=== PATIENT | female | born 1950 | race Caucasian/White ===

== ENCOUNTER 2018-02-06 10:00 | Outpatient (CLI) | payer MEDICARE, OTHER ==
[~2018-02-06 10:00] MED LIST: CALCITRIOL 0.25 MCG CAP PO PRN; DIALYSIS ACETAMINOPHEN 325 MG PO PRN; HEPARIN (PORCINE) 1000 UNIT/ML (DIALYSIS) IVP PRN; LIDOCAINE/SOD BICARB 8.4% SYR SC PRN; LOPERAMIDE HCL 2 MG CAP PO PRN; PROMETHAZINE HCL 25 MG TAB PO PRN; diphenhydr DIALYSIS 50 MG/ML IVP PRN
== END 2018-02-06 18:30 | disposition home or self-care (01) ==
LOC: DIAL 10:00 → EDSTATUS 10:03 → DIAL 18:30
PROVIDERS: ATTEND Internal Medicine Nephrology
DX: N18.6 End stage renal disease (principal); D63.1 Anemia in chronic kidney disease; N25.0 Renal osteodystrophy; Z99.2 Dependence on renal dialysis; I50.9 Heart failure, unspecified; N25.81 Secondary hyperparathyroidism of renal origin; Z91.81 History of falling; G43.909 Migraine, unspecified, not intractable, without status migrainosus; I12.0 Hypertensive chronic kidney disease with stage 5 chronic kidney disease or end stage renal disease; E56.9 Vitamin deficiency, unspecified; D50.9 Iron deficiency anemia, unspecified
CPT/HCPCS: 90999

== ENCOUNTER → 2018-07-31 | Outpatient (CLI) | payer MEDICARE, OTHER | LOC: DIAL 15:00 | PROVIDERS: ATTEND Internal Medicine Nephrology | DX: I12.0 Hypertensive chronic kidney disease with stage 5 chronic kidney disease or end stage renal disease (principal); N18.6 End stage renal disease; Z99.2 Dependence on renal dialysis; D63.1 Anemia in chronic kidney disease; N25.81 Secondary hyperparathyroidism of renal origin; E11.22 Type 2 diabetes mellitus with diabetic chronic kidney disease; I50.9 Heart failure, unspecified; E03.9 Hypothyroidism, unspecified; I13.11 Hypertensive heart and chronic kidney disease without heart failure, with stage 5 chronic kidney disease, or end stage renal disease; Z87.891 Personal history of nicotine dependence | CPT/HCPCS: 90999; A9270 ==

== ENCOUNTER 2018-11-27 12:12 | Outpatient (RCR) | payer MEDICARE, OTHER ==
[~2018-11-27 12:12] MED LIST changes: -CALCITRIOL 0.25 MCG CAP PO PRN; +DARBEPOETIN ESRD 100 MCG/0.5ML 100 MCG, DARBEPOETIN ESRD 25 MCG/ML 50 MCG IVP PRN; +DARBEPOETIN ESRD 100 MCG/0.5ML SYR IVP PRN; +DARBEPOETIN ESRD 25 MCG/ML IVP PRN
[2018-11-27] MEDS: HEPARIN (PORCINE) 1000 UNIT/ML (DIALYSIS) IVP PRN ×2 (13:48)
[2018-11-27] MEDS: SODIUM FERRIC GLUC 62.5 MG/5ML IVP PRN (15:46)
[2018-11-27] MEDS: CALCITRIOL 0.5 MCG CAPSULE PO PRN (15:55)
[2018-11-29] MEDS: HEPARIN (PORCINE) 1000 UNIT/ML (DIALYSIS) IVP PRN ×2 (14:01)
[2018-11-29] MEDS: CALCITRIOL 0.5 MCG CAPSULE PO PRN (15:07)
[2018-11-29] MEDS: SODIUM FERRIC GLUC 62.5 MG/5ML IVP PRN (15:07)
[2018-12-01] MEDS: HEPARIN (PORCINE) 1000 UNIT/ML (DIALYSIS) IVP PRN ×2 (13:31)
[2018-12-04] MEDS: HEPARIN (PORCINE) 1000 UNIT/ML (DIALYSIS) IVP PRN ×2 (15:29→15:30)
[2018-12-04] MEDS: CALCITRIOL 0.5 MCG CAPSULE PO PRN (19:20)
[2018-12-05] MEDS ORDERED: ATOR40TA24 PO (15:14)
[2018-12-05] MEDS ORDERED: AMLO-125 PO (15:14)
[2018-12-05] MEDS ORDERED: DULO60CA7 PO (15:14)
[2018-12-05] MEDS ORDERED: TRAZ150T8 PO (15:14)
[2018-12-05] MEDS ORDERED: TOPI-23 PO (15:14)
[2018-12-05] MEDS ORDERED: LOSA50TA80 PO (15:14)
[2018-12-05] MEDS ORDERED: LEVO88TA43 PO (15:14)
[2018-12-05] MEDS ORDERED: ASPI-1471 PO (15:46)
[2018-12-05] MEDS ORDERED: VIT PO (15:46)
[2018-12-05] MEDS ORDERED: RANI-54 PO (15:46)
[2018-12-05] MEDS ORDERED: LANT750T3 PO (15:46)
[2018-12-05] MEDS ORDERED: CIN30PT PO (15:46)
[2018-12-06] MEDS: HEPARIN (PORCINE) 1000 UNIT/ML (DIALYSIS) IVP PRN ×2 (12:51)
[2018-12-06] MEDS: SODIUM FERRIC GLUC 62.5 MG/5ML IVP PRN (13:19)
[2018-12-06 14:31] LABS: PLATELET COUNT, AUTOMATED 344 K/uL (150-450)
[2018-12-06] MEDS: CALCITRIOL 0.5 MCG CAPSULE PO PRN (16:42)
[2018-12-08] MEDS: HEPARIN (PORCINE) 1000 UNIT/ML (DIALYSIS) IVP PRN ×2 (13:36)
[2018-12-08] MEDS: DARBEPOETIN ESRD 25 MCG/ML IVP PRN (13:58)
[2018-12-08] MEDS: CALCITRIOL 0.5 MCG CAPSULE PO PRN (13:58)
[2018-12-08] MEDS ORDERED: CIN30PT PO ×2 (14:32→15:51)
[2018-12-08] MEDS ORDERED: CHOL500025 PO (15:51)
[2018-12-08] MEDS ORDERED: LANT750T3 PO ×2 (15:51)
[2018-12-08] MEDS ORDERED: OMEG1CAP88 PO (15:51)
[2018-12-11] MEDS: HEPARIN (PORCINE) 1000 UNIT/ML (DIALYSIS) IVP PRN ×2 (13:37)
[2018-12-11] MEDS: CALCITRIOL 0.5 MCG CAPSULE PO PRN (13:49)
[2018-12-13] MEDS: HEPARIN (PORCINE) 1000 UNIT/ML (DIALYSIS) IVP PRN ×2 (11:42)
[2018-12-13] MEDS ORDERED: LANT750T3 PO (13:22)
[2018-12-13] MEDS: CALCITRIOL 0.5 MCG CAPSULE PO PRN (14:14)
[2018-12-13] MEDS: SODIUM FERRIC GLUC 62.5 MG/5ML IVP PRN (14:14)
[2018-12-15] MEDS: HEPARIN (PORCINE) 1000 UNIT/ML (DIALYSIS) IVP PRN ×2 (13:40)
[2018-12-15] MEDS: CALCITRIOL 0.5 MCG CAPSULE PO PRN (14:30)
[2018-12-15] MEDS: DARBEPOETIN ESRD 25 MCG/ML IVP PRN (14:30)
[2018-12-18] MEDS: HEPARIN (PORCINE) 1000 UNIT/ML (DIALYSIS) IVP PRN ×2 (08:44→08:45)
[2018-12-18] MEDS: CALCITRIOL 0.5 MCG CAPSULE PO PRN (09:54)
[2018-12-19] MEDS ORDERED: FLUT1AER INH (16:25)
[2018-12-19] MEDS ORDERED: PANT40TA65 PO (16:25)
[2018-12-19] MEDS ORDERED: ALBU8.5H IH (16:25)
[2018-12-20] MEDS: HEPARIN (PORCINE) 1000 UNIT/ML (DIALYSIS) IVP PRN ×2 (13:31)
[2018-12-20] MEDS: SODIUM FERRIC GLUC 62.5 MG/5ML IVP PRN (14:51)
[2018-12-20] MEDS: CALCITRIOL 0.5 MCG CAPSULE PO PRN (14:51)
[2018-12-22] MEDS: HEPARIN (PORCINE) 1000 UNIT/ML (DIALYSIS) IVP PRN ×2 (13:56)
[2018-12-22] MEDS: CALCITRIOL 0.5 MCG CAPSULE PO PRN (14:02)
[2018-12-22] MEDS ORDERED: DARBEPOETIN ESRD 100 MCG/0.5ML SYR IVP PRN (15:10)
[2019-01-03] MEDS: HEPARIN (PORCINE) 1000 UNIT/ML (DIALYSIS) IVP PRN ×2 (13:36)
[2019-01-03] MEDS: SODIUM FERRIC GLUC 62.5 MG/5ML IVP PRN (14:02)
[2019-01-03] MEDS: CALCITRIOL 0.5 MCG CAPSULE PO PRN (14:02)
[2019-01-05] MEDS ORDERED: DARBEPOETIN ESRD 25 MCG/ML IVP PRN
[2019-01-05] MEDS: HEPARIN (PORCINE) 1000 UNIT/ML (DIALYSIS) IVP PRN ×2 (13:44)
[2019-01-05] MEDS: DARBEPOETIN ESRD 25 MCG/ML IVP PRN (14:10)
[2019-01-05] MEDS: CALCITRIOL 0.5 MCG CAPSULE PO PRN (14:11)
[2019-01-08] MEDS: HEPARIN (PORCINE) 1000 UNIT/ML (DIALYSIS) IVP PRN ×2 (13:36→13:37)
[2019-01-08] MEDS: CALCITRIOL 0.5 MCG CAPSULE PO PRN (14:01)
[2019-01-08] MEDS ORDERED: RANI-54 PO (17:29)
[2019-01-08] MEDS ORDERED: FLUT1AER INH (17:38)
[2019-01-08] MEDS ORDERED: DOCU-416 PO (17:38)
[2019-01-10] MEDS: HEPARIN (PORCINE) 1000 UNIT/ML (DIALYSIS) IVP PRN ×2 (13:26)
[2019-01-10] MEDS: SODIUM FERRIC GLUC 62.5 MG/5ML IVP PRN (15:37)
[2019-01-10] MEDS: CALCITRIOL 0.5 MCG CAPSULE PO PRN (16:18)
[2019-01-12] MEDS: HEPARIN (PORCINE) 1000 UNIT/ML (DIALYSIS) IVP PRN ×2 (13:53)
[2019-01-12] MEDS: CALCITRIOL 0.5 MCG CAPSULE PO PRN (14:13)
[2019-01-12] MEDS: DARBEPOETIN ESRD 25 MCG/ML IVP PRN (14:13)
[2019-01-15] MEDS: HEPARIN (PORCINE) 1000 UNIT/ML (DIALYSIS) IVP PRN ×2 (13:55)
[2019-01-15] MEDS: CALCITRIOL 0.5 MCG CAPSULE PO PRN (14:37)
[2019-01-17] MEDS: HEPARIN (PORCINE) 1000 UNIT/ML (DIALYSIS) IVP PRN ×2 (13:59)
[2019-01-17] MEDS: SODIUM FERRIC GLUC 62.5 MG/5ML IVP PRN (14:07)
[2019-01-17] MEDS: CALCITRIOL 0.5 MCG CAPSULE PO PRN (14:07)
[2019-01-17 14:29] LABS: PLATELET COUNT, AUTOMATED 240 K/uL (150-450)
[2019-01-19] MEDS: HEPARIN (PORCINE) 1000 UNIT/ML (DIALYSIS) IVP PRN ×2 (13:40→13:41)
[2019-01-19] MEDS: CALCITRIOL 0.5 MCG CAPSULE PO PRN (14:56)
[2019-01-19] MEDS ORDERED: DARBEPOETIN ESRD 100 MCG/0.5ML SYR IVP PRN (16:05)
[2019-01-22] MEDS: HEPARIN (PORCINE) 1000 UNIT/ML (DIALYSIS) IVP PRN ×2 (14:00→14:01)
[2019-01-22] MEDS: CALCITRIOL 0.5 MCG CAPSULE PO PRN (18:15)
[2019-01-24] MEDS ORDERED: LOSA50TA80 PO (09:09)
[2019-01-24] MEDS: HEPARIN (PORCINE) 1000 UNIT/ML (DIALYSIS) IVP PRN ×2 (13:52→13:53)
[2019-01-24] MEDS: SODIUM FERRIC GLUC 62.5 MG/5ML IVP PRN (15:45)
[2019-01-26] MEDS: HEPARIN (PORCINE) 1000 UNIT/ML (DIALYSIS) IVP PRN ×2 (13:49)
[2019-01-26] MEDS: DARBEPOETIN ESRD 100 MCG/0.5ML SYR IVP PRN (15:53)
[2019-01-26] MEDS ORDERED: SERT25TA87 PO (17:40)
[2019-01-26] MEDS: CALCITRIOL 0.5 MCG CAPSULE PO PRN (18:06)
[2019-01-29] MEDS: HEPARIN (PORCINE) 1000 UNIT/ML (DIALYSIS) IVP PRN ×2 (13:53)
[2019-01-29] MEDS: CALCITRIOL 0.5 MCG CAPSULE PO PRN (18:04)
[2019-01-31] MEDS: HEPARIN (PORCINE) 1000 UNIT/ML (DIALYSIS) IVP PRN ×2 (13:45)
[2019-01-31] MEDS: SODIUM FERRIC GLUC 62.5 MG/5ML IVP PRN (14:07)
[2019-01-31] MEDS: CALCITRIOL 0.5 MCG CAPSULE PO PRN (14:07)
[2019-02-02] MEDS: HEPARIN (PORCINE) 1000 UNIT/ML (DIALYSIS) IVP PRN ×2 (13:45→13:46)
[2019-02-02] MEDS: DARBEPOETIN ESRD 100 MCG/0.5ML SYR IVP PRN (14:17)
[2019-02-05] MEDS: HEPARIN (PORCINE) 1000 UNIT/ML (DIALYSIS) IVP PRN ×2 (16:25)
[2019-02-05] MEDS: CALCITRIOL 0.5 MCG CAPSULE PO PRN (18:11)
[2019-02-06] MEDS ORDERED: SERT25TA87 PO (09:49)
[2019-02-06] MEDS ORDERED: METO25TA93 PO (16:18)
[2019-02-07] MEDS: HEPARIN (PORCINE) 1000 UNIT/ML (DIALYSIS) IVP PRN ×2 (13:39)
[2019-02-07] MEDS: SODIUM FERRIC GLUC 62.5 MG/5ML IVP PRN (14:15)
[2019-02-07] MEDS: CALCITRIOL 0.5 MCG CAPSULE PO PRN (14:15)
[2019-02-09] MEDS: HEPARIN (PORCINE) 1000 UNIT/ML (DIALYSIS) IVP PRN ×2 (13:48)
[2019-02-09] MEDS: DARBEPOETIN ESRD 100 MCG/0.5ML SYR IVP PRN (14:08)
[2019-02-12] MEDS ORDERED: WARF5TAB23 PO (13:58)
[2019-02-12] MEDS ORDERED: LOSA50TA68 PO (13:58)
[2019-02-21] MEDS: HEPARIN (PORCINE) 1000 UNIT/ML (DIALYSIS) IVP PRN ×2 (13:46→13:47)
[2019-02-21 14:27] LABS: PLATELET COUNT, AUTOMATED 268 K/uL (150-450)
[2019-02-21] MEDS: SODIUM FERRIC GLUC 62.5 MG/5ML IVP PRN (14:40)
[2019-02-21] MEDS: CALCITRIOL 0.5 MCG CAPSULE PO PRN (14:40)
[2019-02-21] MEDS ORDERED: IPRA3AMP10 IH (15:41)
[2019-02-21] MEDS ORDERED: NEPH PO (15:41)
[2019-02-23] MEDS: HEPARIN (PORCINE) 1000 UNIT/ML (DIALYSIS) IVP PRN ×2 (11:44)
[2019-02-23] MEDS: CALCITRIOL 0.5 MCG CAPSULE PO PRN (13:25)
[2019-02-23] MEDS: DARBEPOETIN ESRD 25 MCG/ML IVP PRN (13:25)
[2019-02-26] MEDS: HEPARIN (PORCINE) 1000 UNIT/ML (DIALYSIS) IVP PRN ×2 (13:47)
[2019-02-26] MEDS: PARICALCITOL 2 MCG/ML VIAL IVP PRN (14:15)
[2019-02-28] MEDS ORDERED: WARF5TAB23 PO (13:20)
[2019-02-28] MEDS ORDERED: METO25TA93 PO (13:20)
[2019-02-28] MEDS: HEPARIN (PORCINE) 1000 UNIT/ML (DIALYSIS) IVP PRN ×2 (13:42→13:43)
[2019-02-28] MEDS: SODIUM FERRIC GLUC 62.5 MG/5ML IVP PRN (14:11)
[2019-02-28] MEDS: PARICALCITOL 2 MCG/ML VIAL IVP PRN (14:11)
[2019-03-02] MEDS: HEPARIN (PORCINE) 1000 UNIT/ML (DIALYSIS) IVP PRN ×2 (13:44)
[2019-03-02] MEDS: DARBEPOETIN ESRD 25 MCG/ML IVP PRN (13:56)
[2019-03-02] MEDS: PARICALCITOL 2 MCG/ML VIAL IVP PRN (13:56)
[2019-03-05] MEDS: HEPARIN (PORCINE) 1000 UNIT/ML (DIALYSIS) IVP PRN ×2 (13:50→13:51)
[2019-03-05] MEDS: PARICALCITOL 2 MCG/ML VIAL IVP PRN (14:43)
[2019-03-07] MEDS: HEPARIN (PORCINE) 1000 UNIT/ML (DIALYSIS) IVP PRN ×2 (13:56)
[2019-03-07] MEDS: SODIUM FERRIC GLUC 62.5 MG/5ML IVP PRN (14:13)
[2019-03-07] MEDS: PARICALCITOL 2 MCG/ML VIAL IVP PRN (14:13)
[2019-03-07 14:26] LABS: PLATELET COUNT, AUTOMATED 289 K/uL (150-450)
[2019-03-09] MEDS: HEPARIN (PORCINE) 1000 UNIT/ML (DIALYSIS) IVP PRN ×2 (13:41)
[2019-03-09] MEDS ORDERED: HEPARIN (PORCINE) 1000 UNIT/ML (DIALYSIS) IVP PRN (16:15)
[2019-03-09] MEDS ORDERED: diphenhydr DIALYSIS 50 MG/ML IVP PRN (16:15)
[2019-03-09] MEDS ORDERED: DIALYSIS ACETAMINOPHEN 325 MG PO PRN (16:15)
[2019-03-09] MEDS ORDERED: LOPERAMIDE HCL 2 MG CAP PO PRN (16:15)
[2019-03-09] MEDS ORDERED: LIDOCAINE/SOD BICARB 8.4% SYR SC PRN (16:15)
[2019-03-09] MEDS ORDERED: PROMETHAZINE HCL 25 MG TAB PO PRN (16:20)
[2019-03-09] MEDS: PARICALCITOL 2 MCG/ML VIAL IVP PRN (16:57)
[2019-03-12] MEDS: HEPARIN (PORCINE) 1000 UNIT/ML (DIALYSIS) IVP PRN ×2 (13:52)
[2019-03-12] MEDS: PARICALCITOL 2 MCG/ML VIAL IVP PRN (14:19)
[2019-03-14] MEDS: HEPARIN (PORCINE) 1000 UNIT/ML (DIALYSIS) IVP PRN ×2 (13:25)
[2019-03-14] MEDS: PARICALCITOL 2 MCG/ML VIAL IVP PRN (14:01)
[2019-03-14] MEDS: SODIUM FERRIC GLUC 62.5 MG/5ML IVP PRN (14:01)
[2019-03-14] MEDS ORDERED: FOLI0.8T30 PO (15:44)
[2019-03-15] MEDS ORDERED: SERT25TA87 PO (14:29)
[2019-03-15] MEDS ORDERED: TRAZ150T8 PO (14:33)
[2019-03-15] MEDS ORDERED: ATOR40TA24 PO (14:33)
[2019-03-16] MEDS: HEPARIN (PORCINE) 1000 UNIT/ML (DIALYSIS) IVP PRN ×2 (13:55)
[2019-03-16] MEDS: PARICALCITOL 2 MCG/ML VIAL IVP PRN (14:10)
[2019-03-19] MEDS: HEPARIN (PORCINE) 1000 UNIT/ML (DIALYSIS) IVP PRN ×2 (13:45)
[2019-03-19] MEDS: PARICALCITOL 2 MCG/ML VIAL IVP PRN (14:07)
[2019-03-21] MEDS: HEPARIN (PORCINE) 1000 UNIT/ML (DIALYSIS) IVP PRN ×2 (13:54)
[2019-03-21] MEDS: SODIUM FERRIC GLUC 62.5 MG/5ML IVP PRN (14:41)
[2019-03-21] MEDS: PARICALCITOL 2 MCG/ML VIAL IVP PRN (14:41)
[2019-03-23] MEDS: HEPARIN (PORCINE) 1000 UNIT/ML (DIALYSIS) IVP PRN ×2 (13:57)
[2019-03-23] MEDS: PARICALCITOL 2 MCG/ML VIAL IVP PRN (14:43)
[2019-03-26] MEDS: HEPARIN (PORCINE) 1000 UNIT/ML (DIALYSIS) IVP PRN ×2 (13:43→13:44)
[2019-03-26] MEDS: PARICALCITOL 2 MCG/ML VIAL IVP PRN (14:26)
[2019-03-28] MEDS: HEPARIN (PORCINE) 1000 UNIT/ML (DIALYSIS) IVP PRN ×2 (13:39)
[2019-03-28] MEDS: SODIUM FERRIC GLUC 62.5 MG/5ML IVP PRN (13:56)
[2019-03-28] MEDS: PARICALCITOL 2 MCG/ML VIAL IVP PRN (13:56)
[2019-03-30] MEDS: HEPARIN (PORCINE) 1000 UNIT/ML (DIALYSIS) IVP PRN ×2 (13:33→13:34)
[2019-03-30] MEDS: PARICALCITOL 2 MCG/ML VIAL IVP PRN (13:51)
[2019-04-02] MEDS ORDERED: WARF5TAB23 PO (11:10)
[2019-04-02] MEDS ORDERED: AMLO-125 PO (11:10)
[2019-04-02] MEDS ORDERED: PANT40TA65 PO (11:10)
[2019-04-02] MEDS: HEPARIN (PORCINE) 1000 UNIT/ML (DIALYSIS) IVP PRN ×2 (13:46)
[2019-04-02] MEDS: PARICALCITOL 2 MCG/ML VIAL IVP PRN (13:58)
[2019-04-04] MEDS: HEPARIN (PORCINE) 1000 UNIT/ML (DIALYSIS) IVP PRN ×2 (13:27)
[2019-04-04] MEDS: PARICALCITOL 2 MCG/ML VIAL IVP PRN (13:43)
[2019-04-04] MEDS: SODIUM FERRIC GLUC 62.5 MG/5ML IVP PRN (13:43)
[2019-04-06] MEDS: HEPARIN (PORCINE) 1000 UNIT/ML (DIALYSIS) IVP PRN ×2 (13:45)
[2019-04-06] MEDS: PARICALCITOL 2 MCG/ML VIAL IVP PRN (13:59)
[2019-04-09] MEDS: HEPARIN (PORCINE) 1000 UNIT/ML (DIALYSIS) IVP PRN ×2 (13:57)
[2019-04-09] MEDS: PARICALCITOL 2 MCG/ML VIAL IVP PRN (14:19)
[2019-04-11] MEDS: HEPARIN (PORCINE) 1000 UNIT/ML (DIALYSIS) IVP PRN ×2 (13:51)
[2019-04-11] MEDS: PARICALCITOL 2 MCG/ML VIAL IVP PRN (14:10)
[2019-04-11] MEDS: SODIUM FERRIC GLUC 62.5 MG/5ML IVP PRN (14:10)
[2019-04-13] MEDS: HEPARIN (PORCINE) 1000 UNIT/ML (DIALYSIS) IVP PRN ×2 (13:37)
[2019-04-13] MEDS: PARICALCITOL 2 MCG/ML VIAL IVP PRN (13:53)
[2019-04-13] MEDS: DARBEPOETIN ESRD 25 MCG/ML IVP PRN (13:53)
[2019-04-16] MEDS: HEPARIN (PORCINE) 1000 UNIT/ML (DIALYSIS) IVP PRN ×2 (13:47)
[2019-04-16] MEDS: PARICALCITOL 2 MCG/ML VIAL IVP PRN (14:00)
[2019-04-18] MEDS: HEPARIN (PORCINE) 1000 UNIT/ML (DIALYSIS) IVP PRN ×2 (13:35→13:36)
[2019-04-18] MEDS: SODIUM FERRIC GLUC 62.5 MG/5ML IVP PRN (13:53)
[2019-04-18] MEDS: PARICALCITOL 2 MCG/ML VIAL IVP PRN (13:53)
[2019-04-20] MEDS: HEPARIN (PORCINE) 1000 UNIT/ML (DIALYSIS) IVP PRN ×2 (13:41)
[2019-04-20] MEDS: PARICALCITOL 2 MCG/ML VIAL IVP PRN (14:24)
[2019-04-20] MEDS: DARBEPOETIN ESRD 25 MCG/ML IVP PRN (14:24)
[2019-04-23] MEDS: HEPARIN (PORCINE) 1000 UNIT/ML (DIALYSIS) IVP PRN ×2 (13:46)
[2019-04-23] MEDS: PARICALCITOL 2 MCG/ML VIAL IVP PRN (13:59)
[2019-04-23] MEDS ORDERED: TRAZ150T8 PO (16:55)
[2019-04-25] MEDS: HEPARIN (PORCINE) 1000 UNIT/ML (DIALYSIS) IVP PRN ×2 (13:39)
[2019-04-25] MEDS: SODIUM FERRIC GLUC 62.5 MG/5ML IVP PRN (14:01)
[2019-04-25] MEDS: PARICALCITOL 2 MCG/ML VIAL IVP PRN (14:01)
[2019-04-25 14:41] LABS: PLATELET COUNT, AUTOMATED 263 K/uL (150-450)
[2019-04-27] MEDS: HEPARIN (PORCINE) 1000 UNIT/ML (DIALYSIS) IVP PRN ×2 (13:42)
[2019-04-27] MEDS: PARICALCITOL 2 MCG/ML VIAL IVP PRN (14:20)
[2019-04-27] MEDS: DARBEPOETIN ESRD 25 MCG/ML IVP PRN (14:20)
[2019-04-27] MEDS: DARBEPOETIN ESRD 100 MCG/0.5ML SYR IVP PRN (14:20)
[2019-04-30] MEDS: HEPARIN (PORCINE) 1000 UNIT/ML (DIALYSIS) IVP PRN ×2 (13:41→13:43)
[2019-04-30] MEDS: PARICALCITOL 2 MCG/ML VIAL IVP PRN (14:38)
[2019-05-02] MEDS: HEPARIN (PORCINE) 1000 UNIT/ML (DIALYSIS) IVP PRN ×2 (13:39→13:40)
[2019-05-02] MEDS: SODIUM FERRIC GLUC 62.5 MG/5ML IVP PRN (13:57)
[2019-05-02] MEDS: PARICALCITOL 2 MCG/ML VIAL IVP PRN (13:57)
[2019-05-03] MEDS ORDERED: METO25TA93 PO (14:55)
[2019-05-04] MEDS: HEPARIN (PORCINE) 1000 UNIT/ML (DIALYSIS) IVP PRN ×2 (13:39)
[2019-05-04] MEDS: DARBEPOETIN ESRD 25 MCG/ML IVP PRN (14:26)
[2019-05-04] MEDS: PARICALCITOL 2 MCG/ML VIAL IVP PRN (14:26)
[2019-05-04] MEDS: DARBEPOETIN ESRD 100 MCG/0.5ML SYR IVP PRN (14:26)
[2019-05-07] MEDS ORDERED: METO25TA93 PO (10:20)
[2019-05-07] MEDS: HEPARIN (PORCINE) 1000 UNIT/ML (DIALYSIS) IVP PRN ×2 (13:35→13:36)
[2019-05-07] MEDS: PARICALCITOL 2 MCG/ML VIAL IVP PRN (13:51)
[2019-05-09] MEDS: HEPARIN (PORCINE) 1000 UNIT/ML (DIALYSIS) IVP PRN ×2 (13:41→13:42)
[2019-05-09] MEDS: PARICALCITOL 2 MCG/ML VIAL IVP PRN (14:29)
[2019-05-11] MEDS: HEPARIN (PORCINE) 1000 UNIT/ML (DIALYSIS) IVP PRN ×2 (13:41)
[2019-05-11] MEDS: PARICALCITOL 2 MCG/ML VIAL IVP PRN (16:30)
[2019-05-11] MEDS ORDERED: DARBEPOETIN ESRD 100 MCG/0.5ML SYR IVP PRN (16:30)
[2019-05-14] MEDS: HEPARIN (PORCINE) 1000 UNIT/ML (DIALYSIS) IVP PRN ×2 (13:41→13:42)
[2019-05-14] MEDS: PARICALCITOL 2 MCG/ML VIAL IVP PRN (14:05)
[2019-05-16] MEDS: HEPARIN (PORCINE) 1000 UNIT/ML (DIALYSIS) IVP PRN ×2 (13:42)
[2019-05-16] MEDS: PARICALCITOL 2 MCG/ML VIAL IVP PRN (14:03)
[2019-05-16 14:22] LABS: PLATELET COUNT, AUTOMATED 336 K/uL (150-450)
[2019-05-18] MEDS: HEPARIN (PORCINE) 1000 UNIT/ML (DIALYSIS) IVP PRN ×2 (13:43)
[2019-05-18] MEDS: PARICALCITOL 2 MCG/ML VIAL IVP PRN (14:01)
[2019-05-18] MEDS: DARBEPOETIN ESRD 25 MCG/ML IVP PRN (14:01)
[2019-05-18] MEDS ORDERED: WARF5TAB23 PO (14:35)
[2019-05-21] MEDS: HEPARIN (PORCINE) 1000 UNIT/ML (DIALYSIS) IVP PRN ×2 (13:50)
[2019-05-21] MEDS: PARICALCITOL 2 MCG/ML VIAL IVP PRN (14:20)
[2019-05-23] MEDS: HEPARIN (PORCINE) 1000 UNIT/ML (DIALYSIS) IVP PRN ×2 (13:43)
[2019-05-23] MEDS: PARICALCITOL 2 MCG/ML VIAL IVP PRN (14:12)
[2019-05-23] MEDS ORDERED: LANT10002 PO (15:17)
[2019-05-25] MEDS: HEPARIN (PORCINE) 1000 UNIT/ML (DIALYSIS) IVP PRN ×2 (13:40)
[2019-05-25] MEDS: PARICALCITOL 2 MCG/ML VIAL IVP PRN (13:57)
[2019-05-25] MEDS: DARBEPOETIN ESRD 25 MCG/ML IVP PRN (13:58)
== END 2019-06-02 ==
LOC: DIAL 12:12
PROVIDERS: ATTEND Internal Medicine Nephrology
DX: I12.0 Hypertensive chronic kidney disease with stage 5 chronic kidney disease or end stage renal disease (principal); N18.6 End stage renal disease; D63.1 Anemia in chronic kidney disease; M10.9 Gout, unspecified; J44.9 Chronic obstructive pulmonary disease, unspecified; R09.02 Hypoxemia; I50.9 Heart failure, unspecified; E78.5 Hyperlipidemia, unspecified; E03.9 Hypothyroidism, unspecified; J90 Pleural effusion, not elsewhere classified; N25.81 Secondary hyperparathyroidism of renal origin; Z87.891 Personal history of nicotine dependence; Z99.2 Dependence on renal dialysis; E11.22 Type 2 diabetes mellitus with diabetic chronic kidney disease
CPT/HCPCS: 82040; 82108; 82247; 82310; 82374; 82465; 82565; 82728; 82947; 83036; 83540; 83550; 83970; 84075; 84100; 84132; 84295; 84443; 84460; 84478; 84520; 85018; 85025; 87340; 90999; A4657; A9270; G0472; J0882; J2501; J2916; 86803

== ENCOUNTER → 2018-12-06 | Outpatient (REF) | payer MEDICARE, OTHER ==
[~2018-12-06] MED LIST changes: +AMLO-125 PO; +ASPI-1471 PO; +ATOR40TA24 PO; +CHOL500025 PO; +CIN30PT PO; -DARBEPOETIN ESRD 100 MCG/0.5ML 100 MCG, DARBEPOETIN ESRD 25 MCG/ML 50 MCG IVP PRN; -DARBEPOETIN ESRD 100 MCG/0.5ML SYR IVP PRN; -DARBEPOETIN ESRD 25 MCG/ML IVP PRN; -DIALYSIS ACETAMINOPHEN 325 MG PO PRN; +DULO60CA7 PO; -HEPARIN (PORCINE) 1000 UNIT/ML (DIALYSIS) IVP PRN; +LANT750T3 PO; +LEVO88TA43 PO; -LIDOCAINE/SOD BICARB 8.4% SYR SC PRN; -LOPERAMIDE HCL 2 MG CAP PO PRN; +LOSA50TA80 PO; +OMEG1CAP88 PO; -PROMETHAZINE HCL 25 MG TAB PO PRN; +RANI-366 PO; +TOPI-23 PO; +TRAZ150T8 PO; +VIT PO; -diphenhydr DIALYSIS 50 MG/ML IVP PRN
== END ==
LOC: ZZSENDIN 14:42
PROVIDERS: ATTEND Internal Medicine
DX: J43.8 Other emphysema (principal); N18.6 End stage renal disease; E78.49 Other hyperlipidemia; E03.9 Hypothyroidism, unspecified; M1A.39X0 Chronic gout due to renal impairment, multiple sites, without tophus (tophi); I12.0 Hypertensive chronic kidney disease with stage 5 chronic kidney disease or end stage renal disease
CPT/HCPCS: 82040; 82247; 82306; 82310; 82374; 82435; 82465; 82565; 82947; 83036; 83718; 83735; 83970; 84075; 84100; 84132; 84155; 84295; 84439; 84443; 84450; 84460; 84478; 84520; 84550

== ENCOUNTER → 2018-12-19 | Outpatient (CLI) | payer MEDICARE, OTHER ==
[~2018-12-19] MED LIST changes: +ALBU8.5H IH; +FLUT1AER INH; +PANT40TA65 PO
--- NOTE | 2018-12-19 17:05 | EKG ---
[place]AC[place] [facility] [place]IENT NAME: TD HOLLIS : [id number] MR: [id number] V: [id number] EXAM DATE: ORDERING PHYSICIAN: ANDREA COLEMAN TECHNOLOGIST: LELAND Viveros Reason : SOB Blood Pressure : / mmHG Vent. Rate : 089 BPM Atrial Rate : 089 BPM P-R Int : 230 ms QRS Dur : 090 ms QT Int : 384 ms P-R-T Axes : 051 -36 070 degrees QTc Int : 467 ms Sinus rhythm with 1st degree AV block Left axis deviation Abnormal ECG No previous ECGs available Confirmed by ANDREA COLEMAN ([id number]) on 12/19/2018 5:06:33 PM Referred By: Confirmed By:ANDREA COLEMAN
--- NOTE | 2018-12-19 17:20 | RADIOLOGY IMAGING REPORT ---
FACILITY: [facility] - [place] PATIENT NAME: Roya Hernandez : 1950 MR: [id number] V: [id number] EXAM DATE: ORDERING PHYSICIAN: ANDREA COLEMAN TECHNOLOGIST: Location: [facility] - [place] Patient: Roya Hernandez : 1950 Visit/Account:[id number] Date of Sevice: 12/19/2018 EXAMINATION: PA and Lateral Chest 12/19/2018 4:50 PM HISTORY: sob, heart murmur COMPARISON: None available FINDINGS: Cardiomediastinal contours: Heart is enlarged. Aorta is atherosclerotic. Lungs and pleura: Increased markings in both lungs. Bilateral effusions or pleural thickening. Dens ity laterally in the right midlung may all be fluid and atelectasis along the major and minor fissure s although parenchymal opacity or even mass cannot be excluded. Bones/soft tissues: Osteopenia. Scoliotic spinal curvature. Previous lower cervical ACF. Right upp er quadrant cholecystectomy clips. IMPRESSION: 1. Cardiomegaly with mild pulmonary edema and bilateral effusions. 2. Opacity in lateral right midlung as discussed above. Follow-up radiographs would be recommended to ensure that this clears to exclude neoplasm. Report Dictated By: Dallas Alicea MD at 12/19/2018 5:15 PM Report E-Signed By: Dallas Alicea MD at 12/19/2018 5:17 PM WSN:[email or web address]
== END ==
LOC: RESP 16:34
PROVIDERS: ATTEND Internal Medicine
DX: J90 Pleural effusion, not elsewhere classified (principal); I51.7 Cardiomegaly; J81.0 Acute pulmonary edema; R94.31 Abnormal electrocardiogram [ECG] [EKG]
CPT/HCPCS: 71046

== ENCOUNTER 2018-12-25 14:04 | Emergency (ER) | payer MEDICARE, OTHER ==
[~2018-12-25 14:04] MED LIST changes: -DOCU-416 PO
--- NOTE | 2018-12-25 14:08 | ER Report ---
History and Physical Time Seen By : 14:08 HPI/ROS CHIEF COMPLAINT: Shortness of breath HISTORY OF PRESENT ILLNESS: This is a 68-year-old female presents to the emergency department with her [id number] for shortness of breath. Patient moved to [place] approximately one month ago from [facility], the elevation there is about 3-4000 feet versus [place] at 7200. She's had increased shortness breath since moving to [place]. More so over the last 2 days, requiring increased oxygen demands. She also receives dialysis secondary to end- stage renal disease and diabetes. She also states her last 2 days she's had increased chest pressure Russi anterior surface. No diaphoresis, no nausea or vomiting. No aches or chills. No fevers. No rashes. No headaches. REVIEW OF SYSTEMS: Constitutional: No fever, no chills. Eyes: No discharge. ENT: No sore throat. Cardiovascular: As above. Respiratory: As above. Gastrointestinal: No abdominal pain, no vomiting. Genitourinary: As above. Musculoskeletal: No back pain. Skin: No rashes. Neurological: No headache. Allergies: Coded Allergies: No Known Allergies (Unverified Allergy, Unknown, 07/02/14) Home Meds Active Scripts Pantoprazole Sodium (PANTOPRAZOLE SODIUM) 40 Mg Tablet.dr, 40 MG PO QDAY, #30 TAB.SR 6 Refills Prov:ANDREA COLEMAN MD 12/19/18 Albuterol Sulfate 90 Mcg/Act (PROAIR HFA 90 MCG/ACT) 8.5 Gm Hfa.aer.ad, 2 PUFF IH QID PRN for SHORTNESS OF BREATH, #1 INHALER 3 Refills Prov:ANDREA COLEMAN MD 12/19/18 Reported Medications Fluticasone/Vilanterol 100/25 Mcg/Inh (BREO ELLIPTA 100/25 MCG) 1 Each Aer.pow.ba, 1 INH INH QDAY, INH 12/19/18 Lanthanum Carbonate (FOSRENOL) 750 Mg Tab.chew, 750 MG PO TIDCF, TAB.CHEW 12/13/18 Cholecalciferol (Vitamin D3) (VITAMIN D3) 5,000 Unit Tablet, 5000 UNIT PO QDAY 12/08/18 [place]-3/Dha/Epa/Fish Oil (Fish Oil 1,200 mg Softgel) 360 Mg-1,200 Mg Capsule.dr, 1 EA PO BID 12/08/18 Vit B Complex & C No.13/Fa/D3 (NEPHROCAPS QT TABLET) Unknown Strength Tab.rapdis, PO 12/05/18 Aspirin (ASPIR 81) 81 Mg Tablet.dr, 1 TAB PO QDAY, TAB 12/05/18 Atorvastatin Calcium (LIPITOR) 40 Mg Tablet, 1 TAB PO HS, TAB 12/05/18 Trazodone Hcl (TRAZODONE HCL) 150 Mg Tablet, 300 MG PO QHS 12/05/18 Losartan Potassium (LOSARTAN POTASSIUM) 50 Mg Tablet, 50 MG PO BID 12/05/18 Amlodipine Besylate (AMLODIPINE BESYLATE) 5 Mg Tablet, 2 TAB PO QDAY, TAB 12/05/18 Duloxetine HCl (Duloxetine HCl) 60 Mg Capsule.dr, 30 MG PO DIRECTED take 2 tabs in the am take 1 tab in the evening 12/05/18 Levothyroxine Sodium (SYNTHROID) 88 Mcg Tablet, 88 MCG PO QDAY 12/05/18 Topiramate (TOPIRAMATE) 25 Mg Tablet, 25 MG PO BID 12/05/18 Past Medical/Surgical History The patient has a past medical and surgical history of end-stage renal disease, on dialysis, impaired memory, type II diabetes, anemia of chronic disease, hyper tension, hyperlipidemia, insomnia, hypothyroidism. Reviewed Nurses Notes: Yes Smoking Status: Former Smoker Exposure to Second Hand Smoke?: Yes Constitutional Vital Sign - Last 24 Hours 12/25/18 12/25/18 12/25/18 12/25/18 14:08 14:11 14:18 14:18 Temp 97.4 Pulse 88 89 Resp 35 22 B/P (MAP) 155/85 155/85 (108) Pulse Ox 78 92 O2 Delivery Nasal Cannula Nasal Cannula O2 Flow Rate 4.0 12/25/18 12/25/18 12/25/18 12/25/18 14:25 14:32 14:34 14:52 Pulse 85 83 Resp 20 23 B/P (MAP) 161/92 (115) Pulse Ox 92 O2 Flow Rate 5.0 12/25/18 12/25/18 12/25/18 12/25/18 15:00 15:04 15:30 15:34 Pulse 85 80 Resp 32 B/P (MAP) 163/93 (116) 155/87 (109) Pulse Ox 84 91 12/25/18 12/25/18 12/25/18 12/25/18 15:39 16:00 16:05 16:05 Pulse 83 83 Resp 20 B/P (MAP) 159/83 (108) Pulse Ox 90 94 O2 Delivery Nasal Cannula O2 Flow Rate 4.0 12/25/18 12/25/18 12/25/18 12/25/18 16:09 16:10 16:30 16:39 Pulse 86 82 84 Resp 18 B/P (MAP) 148/81 (103) Pulse Ox 96 92 12/25/18 12/25/18 12/25/18 12/25/18 17:00 17:09 17:14 17:30 Pulse 86 85 B/P (MAP) 169/92 (117) 154/81 (105) Pulse Ox 88 87 O2 Delivery Nasal Cannula O2 Flow Rate 4 12/25/18 12/25/18 12/25/18 12/25/18 17:35 18:00 18:05 18:30 Pulse 86 87 B/P (MAP) 155/86 (109) 162/87 (112) Pulse Ox 86 89 O2 Delivery Nasal Cannula Nasal Cannula O2 Flow Rate 4 4 12/25/18 12/25/18 12/25/18 12/25/18 18:35 18:40 19:00 19:10 Pulse 89 91 87 B/P (MAP) 163/90 (114) Pulse Ox 90 89 88 O2 Delivery Nasal Cannula Nasal Cannula O2 Flow Rate 4 4 12/25/18 12/25/18 12/25/18 12/25/18 19:30 19:35 20:00 20:05 Pulse 90 90 B/P (MAP) 145/102 (116) 163/84 (110) Pulse Ox 93 90 12/25/18 12/25/18 12/25/18 12/25/18 20:10 20:30 20:40 20:40 Pulse 86 92 91 Resp 22 B/P (MAP) 135/89 (104) Pulse Ox 92 91 12/25/18 12/25/18 12/25/18 12/25/18 20:40 20:46 21:00 21:10 Pulse 92 88 Resp 22 B/P (MAP) 160/85 (110) Pulse Ox 90 91 O2 Delivery Nasal Cannula O2 Flow Rate 5.0 12/25/18 12/25/18 12/25/18 12/25/18 21:15 21:30 21:45 21:50 Pulse 84 92 105 Resp 26 B/P (MAP) 153/88 (109) Pulse Ox 92 88 12/25/18 12/25/18 12/25/18 12/25/18 21:50 21:56 22:00 22:15 Pulse 102 97 Resp 28 31 B/P (MAP) 104/88 (93) Pulse Ox 95 96 O2 Delivery Nasal Cannula O2 Flow Rate 5.0 12/25/18 12/25/18 22:20 22:30 Pulse 95 Resp 27 B/P (MAP) 149/82 (104) Pulse Ox 96 Physical Exam General Appearance: The patient is alert, has no immediate need for airway protection and no signs of toxicity, she is however working hard to breathe, saying very erect. Eyes: Pupils equal and round no pallor or injection. ENT, Mouth: Mucous membranes are dry. Respiratory: Diminished in the bilateral bases, expiratory wheezes throughout. Cardiovascular: Regular rate and rhythm, grade 3 systolic murmur, no clicks or rubs. Gastrointestinal: Abdomen is soft and non tender, no masses, bowel sounds normal. Neurological: Alert and oriented 4. Moving all extremities. Following all commands. No focal neuro deficits. Skin: Warm and dry, no rashes. Musculoskeletal: Neck is supple non tender. Extremities are nontender, nonswollen and have full range of motion. DIFFERENTIAL DIAGNOSIS: After history and physical exam differential diagnosis was considered for shortness of breath including but not limited to pulmonary infectious process, COPD, asthma, pulmonary embolus and congestive heart failure. Medical Decision Making Data Points Result Diagram: 12/25/18 1426 12/25/18 1426 Laboratory Hematology Test 12/25/18 14:26 Red Blood Count 3.55 M/uL (4.17-5.56) Mean Corpuscular Volume 94.9 fL (80.0-96.0) Mean Corpuscular Hemoglobin 30.2 pg (26.0-33.0) Mean Corpuscular Hemoglobin Concent 31.8 g/dL (32.0-36.0) Red Cell Distribution Width 16.9 % (11.5-14.5) Mean Platelet Volume 6.0 fL (7.2-11.1) Neutrophils (%) (Auto) 73.7 % (39.4-72.5) Lymphocytes (%) (Auto) 11.7 % (17.6-49.6) Monocytes (%) (Auto) 11.5 % (4.1-12.4) Eosinophils (%) (Auto) 1.3 % (0.4-6.7) Basophils (%) (Auto) 1.8 % (0.3-1.4) Nucleated RBC Relative Count (auto) 0.0 /100WBC Neutrophils # (Auto) 3.8 K/uL (2.0-7.4) Lymphocytes # (Auto) 0.6 K/uL (1.3-3.6) Monocytes # (Auto) 0.6 K/uL (0.3-1.0) Eosinophils # (Auto) 0.1 K/uL (0.0-0.5) Basophils # (Auto) 0.1 K/uL (0.0-0.1) Nucleated RBC Absolute Count (auto) 0.00 K/uL Sodium Level 129 mmol/L (137-145) Potassium Level 5.0 mmol/L (3.5-5.0) Chloride Level 88 mmol/L (98-107) Carbon Dioxide Level 27 mmol/L (22-31) Blood Urea Nitrogen 27 mg/dl (7-18) Creatinine 7.90 mg/dl (0.52-1.04) Glomerular Filtration Rate Calc 5.1 Random Glucose 96 mg/dl (75-110) Calcium Level 9.7 mg/dl (8.4-10.2) Total Bilirubin 1.0 mg/dl (0.2-1.3) Aspartate Amino Transf (AST/SGOT) 26 U/L (0-35) Alanine Aminotransferase (ALT/SGPT) 22 U/L (0-56) Alkaline Phosphatase 210 U/L (0-126) Troponin I 0.049 ng/ml B-Type Natriuretic Peptide > 5000 pg/ml (0-100) Total Protein 7.4 g/dl (6.3-8.2) Albumin 4.2 g/dl (3.5-5.0) Chemistry Test 12/25/18 14:26 White Blood Count 5.1 k/uL (4.5-11.0) Red Blood Count 3.55 M/uL (4.17-5.56) Hemoglobin 10.7 g/dL (12.0-16.0) Hematocrit 33.7 % (34.0-47.0) Mean Corpuscular Volume 94.9 fL (80.0-96.0) Mean Corpuscular Hemoglobin 30.2 pg (26.0-33.0) Mean Corpuscular Hemoglobin Concent 31.8 g/dL (32.0-36.0) Red Cell Distribution Width 16.9 % (11.5-14.5) Platelet Count 379 K/uL (150-450) Mean Platelet Volume 6.0 fL (7.2-11.1) Neutrophils (%) (Auto) 73.7 % (39.4-72.5) Lymphocytes (%) (Auto) 11.7 % (17.6-49.6) Monocytes (%) (Auto) 11.5 % (4.1-12.4) Eosinophils (%) (Auto) 1.3 % (0.4-6.7) Basophils (%) (Auto) 1.8 % (0.3-1.4) Nucleated RBC Relative Count (auto) 0.0 /100WBC Neutrophils # (Auto) 3.8 K/uL (2.0-7.4) Lymphocytes # (Auto) 0.6 K/uL (1.3-3.6) Monocytes # (Auto) 0.6 K/uL (0.3-1.0) Eosinophils # (Auto) 0.1 K/uL (0.0-0.5) Basophils # (Auto) 0.1 K/uL (0.0-0.1) Nucleated RBC Absolute Count (auto) 0.00 K/uL Glomerular Filtration Rate Calc 5.1 Calcium Level 9.7 mg/dl (8.4-10.2) Total Bilirubin 1.0 mg/dl (0.2-1.3) Aspartate Amino Transf (AST/SGOT) 26 U/L (0-35) Alanine Aminotransferase (ALT/SGPT) 22 U/L (0-56) Alkaline Phosphatase 210 U/L (0-126) Troponin I 0.049 ng/ml B-Type Natriuretic Peptide > 5000 pg/ml (0-100) Total Protein 7.4 g/dl (6.3-8.2) Albumin 4.2 g/dl (3.5-5.0) EKG/Imaging EKG Interpretation 12 lead EKG: Time of EKG 1420. Rhythm: Sinus rhythm with a first-degree AV block, ventricular rate 83 BPM. Irwin: Left axis deviation. QRS: normal ST segments: No ST depression or elevation identified. No significant changes from the 12/19/2018 EKG, poor R-wave progression, the only notable difference is current EKG with no R-wave in V4, where his there is a notable R wave on the previous EKG. Imaging Location: [facility] - [place] Patient: Roya Hernandez : 1950 Visit/Account:[id number] Date of Sevice: 12/25/2018 Chest 2 views: HISTORY: Shortness of breath, chronic cough. No smoking history. COMPARISON: 12/19/2018 FINDINGS: Frontal and lateral chest: Heart is enlarged. There is prominence of central vasculature and interstitial markings. Right pleural effusion is unchanged. There is persistent right midlung opacity although slightly improved which may be resolving atelectasis or infiltrate. There is a left pleural effusion which is increased compared to previous. Left basilar opacity is likely atelectasis and/or infiltrate. There is indistinctness of the interstitial markings most apparent in the left lung. IMPRESSION: Cardiomegaly, vascular congestion and findings suggestive of interstitial edema. There are bilateral effusions left has increased right is stable, findings are consistent with congestive heart failure. There is superimposed areas of opacity specifically right midlung and left lower lobe, atelectasis versus infiltrate. Radiographically the patient appears worse. Follow-up to ensure resolution is recommended. Report Dictated By: Omayra Slameron MD at 12/25/2018 2:58 PM Report E-Signed By: Omayra Salmeron MD at 12/25/2018 3:02 PM WSN:[email or web address] ED Course/Re-evaluation Clinical Indication for ER IV: IV Access ED Course The patient was admitted to room. A history and physical obtained. Differential diagnoses were considered. An IV was started. A CBC, CMP, BNP and troponin were obtained.CBC showing I reseized 3.55, hemoglobin and hematocrit 10.7 and 33.7, similar to historical data, chemistry showing sodium 129, BUN 27, creatinine 7.90, BNP greater than 5000, Troponin 0.049, the chemistry is similar to the limited historical data however there is no BNP available as the patient is new to the Hospital clinic. EKG showing sinus rhythm with a first-degree AV block, left axis deviation, no ST depression or elevation identified. Patient was given 1 DuoNeb, 60 mg IV Solu-Medrol. Two-view chest x-ray showing cardiomegaly, vascular congestion and findings suggestive of interstitial edema. There are bi lateral effusions left has increased right is stable, findings are consistent with congestive heart failure. There is superimposed areas of opacity specifically right midlung and left lower lobe, atelectasis versus infiltrate. Radiographically the patient appears worse. I did review the results with the patient and her family who were at the bedside. I did recommend a transfer to a higher acuity facility that has inpatient dialysis. I did explain to them that we do not have inpatient dialysis available here, they expressed understanding and were in agreement with a transfer to [facility]. I did speak with Dr. Humphries the [facility] hospitalist on-call, he has accepted the patient in the hospitalist services. She will be transferred via ground. Patient was given one additional DuoNeb prior to transfer. 12/25/2018 3:49:29 pm I did speak with Dr. Humphries the [facility] hospitalist, he has a ccepted the patient for transfer and admit to [facility]. I have updated the patient and her family was at the bedside several times as to delay, we have several ambulances out at this time, once they have an available ambulance, she'll be transferred to [facility]. They expressed understanding. Decision to Disposition Date: Dec 25, 2018 Decision to Disposition Time: 15:49 Depart Departure Latest Vital Signs Vital Signs Date Time Temp Pulse Resp B/P (MAP) Pulse Ox O2 Delivery O2 Flow Rate FiO2 12/25/18 22:30 149/82 (104) 12/25/18 22:20 95 27 96 12/25/18 21:50 Nasal Cannula 5.0 12/25/18 14:08 97.4 Impression: Primary Impression: CHF (congestive heart failure) Additional Impressions: End stage renal disease Dyspnea Condition: Improved Disposition: XFER TO ACUTE CARE HOSPITAL ([facility]) Referrals: ANDREA COLEMAN MD (PCP) Problem Qualifiers Primary Impression: CHF (congestive heart failure) Heart failure type: unspecified Heart failure chronicity: acute on chronic Qualified Codes: I50.9 - Heart failure, unspecified Additional Impressions: Dyspnea Dyspnea type: shortness of breath Qualified Codes: R06.02 - Shortness of breath VIJYA BERNARDO [employer] Dec 25, 2018 14:08
[2018-12-25] MEDS ORDERED: ALBUTEROL/IPRATROPIUM 3 ML NEB ONE ×2 (14:16→16:02)
[2018-12-25] MEDS: ALBUTEROL/IPRATROPIUM 3 ML NEB NEB ONE ×2 (14:20→16:03)
[2018-12-25] MEDS ORDERED: methylPREDNIS SUCC 125 MG/2ML IVP ONE (14:20)
--- NOTE | 2018-12-25 14:25 | EKG ---
FACILITY: [facility] PATIENT NAME: TD HOLLIS : [id number] MR: [id number] V: [id number] EXAM DATE: ORDERING PHYSICIAN: VIJAY BERNARDO TECHNOLOGIST: LEVI Viveros Reason : SOB Blood Pressure : / mmHG Vent. Rate : 083 BPM Atrial Rate : 083 BPM P-R Int : 246 ms QRS Dur : 092 ms QT Int : 408 ms P-R-T Axes : 056 -58 056 degrees QTc Int : 479 ms Sinus rhythm with 1st degree AV block Left axis deviation Anterior infarct , age undetermined Abnormal ECG When compared with ECG of 19-DEC-2018 15:37, No significant change was found Confirmed by LUIS SUMMERS ([id number]) on 12/25/2018 7:24:14 PM Referred By: NIDHI Confirmed By:LUIS SUMMERS
[2018-12-25 14:49] LABS: PLATELET COUNT, AUTOMATED 379 K/uL (150-450)
--- NOTE | 2018-12-25 15:07 | RADIOLOGY IMAGING REPORT ---
FACILITY: [facility] PATIENT NAME: Roya Hernandez : 1950 MR: [id number] V: [id number] EXAM DATE: ORDERING PHYSICIAN: VIJAY BERNARDO TECHNOLOGIST: Location: [facility] - [place] Patient: Roya Hernandez : 1950 Visit/Account:[id number] Date of Sevice: 12/25/2018 Chest 2 views: HISTORY: Shortness of breath, chronic cough. No smoking history. COMPARISON: 12/19/2018 FINDINGS: Frontal and lateral chest: Heart is enlarged. There is prominence of central vasculature a nd interstitial markings. Right pleural effusion is unchanged. There is persistent right midlung op acity although slightly improved which may be resolving atelectasis or infiltrate. There is a left p leural effusion which is increased compared to previous. Left basilar opacity is likely atelectasis and/or infiltrate. There is indistinctness of the interstitial markings most apparent in the left xena ng. IMPRESSION: Cardiomegaly, vascular congestion and findings suggestive of interstitial edema. There a re bilateral effusions left has increased right is stable, findings are consistent with congestive he art failure. There is superimposed areas of opacity specifically right midlung and left lower lobe, atelectasis versus infiltrate. Radiographically the patient appears worse. Follow-up to ensure reso lution is recommended. Report Dictated By: Omayra Salmeron MD at 12/25/2018 2:58 PM Report E-Signed By: Omayra Salmeron MD at 12/25/2018 3:02 PM WSN:[email or web address]
[2018-12-25] MEDS ORDERED: ALBUTEROL/IPRATROPIUM 3 ML NEB NEB ONE ×2 (20:35→21:50)
[2018-12-25 22:30] VITALS: BP 149/82
== END 2018-12-25 22:35 | disposition home or self-care (01) ==
LOC: ER 14:11
DX: I50.9 Heart failure, unspecified (principal); R06.02 Shortness of breath; E11.22 Type 2 diabetes mellitus with diabetic chronic kidney disease
CPT/HCPCS: 71046; 83880; 84484; 85025; 93005; 94640; 96374; 99285; J2930; J7620; 82040; 82247; 82310; 82374; 82435; 82565; 82947; 84075; 84132; 84155; 84295; 84450; 84460; 84520

== ENCOUNTER → 2018-12-25 | Outpatient (CLI) | payer MEDICARE, OTHER ==
[~2018-12-25] MED LIST changes: +DOCU-416 PO
== END ==
LOC: AMB 22:15
PROVIDERS: ATTEND Nurse Practitioner
DX: J90 Pleural effusion, not elsewhere classified (principal); I50.9 Heart failure, unspecified; J44.9 Chronic obstructive pulmonary disease, unspecified; N19 Unspecified kidney failure; Z99.2 Dependence on renal dialysis
CPT/HCPCS: A0425; A0426

== ENCOUNTER 2019-02-12 13:39 | Emergency (ER) | payer MEDICARE, OTHER ==
[~2019-02-12 13:39] MED LIST changes: -IPRA3AMP10 IH; -LOSA50TA68 PO; -NEPH PO; -WARF5TAB23 PO
--- NOTE | 2019-02-12 13:41 | ER Report ---
History and Physical Time Seen By MD: 13:41 HPI/ROS CHIEF COMPLAINT: Shortness breath, diffuse edema HISTORY OF PRESENT ILLNESS: Patient is a 69-year-old female hemodialysis dependent on Tuesday is here with complaints of increasing dyspnea, 72% on her baseline 4 L nasal cannula. Patient reports diffuse lower extremity 3+ hitting edema. Patient reportedly is up 15.8 kg from her dry weight which per dialysis nurse report is 64 kg. I discussed the patient with the hemodialysis nurse who reports that the patient is too volume overloaded to dialyze off her excess fluid. Patient was hospitalized. at [facility] several weeks ago for a similar episode. Patient does have diminished breath sounds bilaterally, complaints of shortness of breath at rest. Denies recent fevers, nausea, vomiting, abdominal pain. REVIEW OF SYSTEMS: Constitutional: No fever, no chills. Eyes: No discharge. ENT: No sore throat. + JVD Cardiovascular: No chest pain, no palpitations. Respiratory: + persistent cough, + shortness of breath. Gastrointestinal: No abdominal pain, no vomiting. Genitourinary: No hematuria. Musculoskeletal: No back pain. + LE b/l edema Skin: No rashes. Neurological: No headache. + baseline dementia (per family) Allergies: Coded Allergies: No Known Allergies (Unverified Allergy, Unknown, 07/02/14) Home Meds Active Scripts Metoprolol Tartrate (METOPROLOL TARTRATE) 25 Mg Tablet, 25 MG PO BID, #60 TAB Prov:ANDREA COLEMAN MD 02/06/19 Sertraline Hcl (ZOLOFT) 25 Mg Tablet, 1 TAB PO QDAY PRN for ANXIETY, #90 TAB 1 Refill Prov:ANDREA OCLEMAN MD 02/06/19 Losartan Potassium (LOSARTAN POTASSIUM) 50 Mg Tablet, 50 MG PO BID, #180 TAB 1 Refill Prov:ANDREA COLEMAN MD 01/24/19 Pantoprazole Sodium (PANTOPRAZOLE SODIUM) 40 Mg Tablet.dr, 40 MG PO QDAY, #30 TAB.SR 6 Refills Prov:ANDREA COLEMAN MD 12/19/18 Albuterol Sulfate 90 Mcg/Act (PROAIR HFA 90 MCG/ACT) 8.5 Gm Hfa.aer.ad, 2 PUFF IH QID PRN for SHORTNESS OF BREATH, #1 INHALER 3 Refills Prov:ANDREA COLEMAN MD 12/19/18 Reported Medications Losartan Potassium (COZAAR) 50 Mg Tablet, 50 MG PO BID 02/12/19 Warfarin Sodium (WARFARIN SODIUM) 5 Mg Tablet, 5 MG PO QDAY, TAB 02/12/19 Docusate Sodium (COLACE) 100 Mg Capsule, 100 MG PO QDAY PRN for constipation, CAPSULE 1-2 tabs as needed for constipation 01/08/19 Ranitidine Hcl (ZANTAC) 150 Mg Tablet, 150 MG PO QHS, TAB 01/08/19 Fluticasone/Vilanterol 100/25 Mcg/Inh (BREO ELLIPTA 100/25 MCG) 1 Each Aer.pow.ba, 1 INH INH QDAY, INH 12/19/18 Lanthanum Carbonate (FOSRENOL) 750 Mg Tab.chew, 750 MG PO TIDCF, TAB.CHEW 12/13/18 Cholecalciferol (Vitamin D3) (VITAMIN D3) 5,000 Unit Tablet, 5000 UNIT PO QDAY 12/08/18 [place]-3/Dha/Epa/Fish Oil (Fish Oil 1,200 mg Softgel) 360 Mg-1,200 Mg Capsule.dr, 1 EA PO BID 12/08/18 Vit B Complex & C No.13/Fa/D3 (NEPHROCAPS QT TABLET) Unknown Strength Tab.rapdis, PO 12/05/18 Aspirin (ASPIR 81) 81 Mg Tablet.dr, 1 TAB PO QDAY, TAB 12/05/18 Atorvastatin Calcium (LIPITOR) 40 Mg Tablet, 1 TAB PO HS, TAB 12/05/18 Trazodone Hcl (TRAZODONE HCL) 150 Mg Tablet, 300 MG PO QHS 12/05/18 Amlodipine Besylate (AMLODIPINE BESYLATE) 5 Mg Tablet, 10 MG PO QDAY, TAB 12/05/18 Duloxetine HCl (Duloxetine HCl) 60 Mg Capsule.dr, 30 MG PO DIRECTED take 2 tabs in the am take 1 tab in the evening 12/05/18 Levothyroxine Sodium (SYNTHROID) 88 Mcg Tablet, 88 MCG PO QDAY 12/05/18 Topiramate (TOPIRAMATE) 25 Mg Tablet, 25 MG PO BID 12/05/18 Smoking Status: Former Smoker Exposure to Second Hand Smoke?: Yes Hx Substance Use Disorder: Yes (MARIJUANA ) Hx Alcohol Use: No Constitutional Vital Sign - Last 24 Hours 02/12/19 02/12/19 13:44 13:50 Pulse 52 Resp 32 B/P (MAP) 161/77 Pulse Ox 75 O2 Delivery Room Air O2 Flow Rate 8.0 Physical Exam General Appearance: The patient is alert, has no immediate need for airway protection and no signs of toxicity. Uncomfortable appearing Eyes: Pupils equal and round no pallor or injection. ENT, Mouth: Mucous membranes are moist. Respiratory:+ Diminished breath sounds bilaterally, crackles at bases, Cardiovascular: Sinus bradycardia Gastrointestinal: Abdomen is soft and non tender, no masses, bowel sounds normal. Neurological: No focal neurological findings, alert and oriented Skin: Warm and dry, no rashes. Musculoskeletal: Neck is supple non tender. 3+ pitting edema of the bilateral lower extremities DIFFERENTIAL DIAGNOSIS: After history and physical exam differential diagnosis was considered for shortness of breath including but not limited to pulmonary infectious process, COPD, asthma, pulmonary embolus and congestive heart failure. Medical Decision Making Data Points Result Diagram: 02/12/19 1420 02/12/19 1420 Laboratory Hematology Test 02/12/19 14:20 Red Blood Count 3.97 M/uL (4.17-5.56) Mean Corpuscular Volume 96.1 fL (80.0-96.0) Mean Corpuscular Hemoglobin 30.9 pg (26.0-33.0) Mean Corpuscular Hemoglobin Concent 32.1 g/dL (32.0-36.0) Red Cell Distribution Width 17.8 % (11.5-14.5) Mean Platelet Volume 6.3 fL (7.2-11.1) Neutrophils (%) (Auto) 74.8 % (39.4-72.5) Lymphocytes (%) (Auto) 12.3 % (17.6-49.6) Monocytes (%) (Auto) 9.5 % (4.1-12.4) Eosinophils (%) (Auto) 0.5 % (0.4-6.7) Basophils (%) (Auto) 2.9 % (0.3-1.4) Nucleated RBC Relative Count (auto) 0.1 /100WBC Neutrophils # (Auto) 3.6 K/uL (2.0-7.4) Lymphocytes # (Auto) 0.6 K/uL (1.3-3.6) Monocytes # (Auto) 0.5 K/uL (0.3-1.0) Eosinophils # (Auto) 0.0 K/uL (0.0-0.5) Basophils # (Auto) 0.1 K/uL (0.0-0.1) Nucleated RBC Absolute Count (auto) 0.00 K/uL Prothrombin Time 16.6 seconds (12.0-14.4) Prothromb Time International Ratio 1.33 Activated Partial Thromboplast Time 33 seconds (23-35) Sodium Level 133 mmol/L (137-145) Potassium Level 4.3 mmol/L (3.5-5.0) Chloride Level 91 mmol/L (98-107) Carbon Dioxide Level 26 mmol/L (22-31) Blood Urea Nitrogen 25 mg/dl (7-18) Creatinine 6.10 mg/dl (0.52-1.04) Glomerular Filtration Rate Calc 6.8 Random Glucose 73 mg/dl (75-110) Lactate 1.8 mmol/L (0.7-2.1) Calcium Level 10.0 mg/dl (8.4-10.2) Phosphorus Level 5.4 mg/dl (2.5-4.5) Magnesium Level 2.0 mg/dl (1.7-2.2) Total Bilirubin 1.2 mg/dl (0.2-1.3) Aspartate Amino Transf (AST/SGOT) 35 U/L (0-35) Alanine Aminotransferase (ALT/SGPT) 89 U/L (0-56) Alkaline Phosphatase 281 U/L (0-126) Troponin I 0.031 ng/ml B-Type Natriuretic Peptide > 5000 pg/ml (0-100) Total Protein 7.0 g/dl (6.3-8.2) Albumin 4.0 g/dl (3.5-5.0) Lipase 53 U/L (23-300) Chemistry Test 02/12/19 14:20 White Blood Count 4.8 k/uL (4.5-11.0) Red Blood Count 3.97 M/uL (4.17-5.56) Hemoglobin 12.3 g/dL (12.0-16.0) Hematocrit 38.2 % (34.0-47.0) Mean Corpuscular Volume 96.1 fL (80.0-96.0) Mean Corpuscular Hemoglobin 30.9 pg (26.0-33.0) Mean Corpuscular Hemoglobin Concent 32.1 g/dL (32.0-36.0) Red Cell Distribution Width 17.8 % (11.5-14.5) Platelet Count 263 K/uL (150-450) Mean Platelet Volume 6.3 fL (7.2-11.1) Neutrophils (%) (Auto) 74.8 % (39.4-72.5) Lymphocytes (%) (Auto) 12.3 % (17.6-49.6) Monocytes (%) (Auto) 9.5 % (4.1-12.4) Eosinophils (%) (Auto) 0.5 % (0.4-6.7) Basophils (%) (Auto) 2.9 % (0.3-1.4) Nucleated RBC Relative Count (auto) 0.1 /100WBC Neutrophils # (Auto) 3.6 K/uL (2.0-7.4) Lymphocytes # (Auto) 0.6 K/uL (1.3-3.6) Monocytes # (Auto) 0.5 K/uL (0.3-1.0) Eosinophils # (Auto) 0.0 K/uL (0.0-0.5) Basophils # (Auto) 0.1 K/uL (0.0-0.1) Nucleated RBC Absolute Count (auto) 0.00 K/uL Prothrombin Time 16.6 seconds (12.0-14.4) Prothromb Time International Ratio 1.33 Activated Partial Thromboplast Time 33 seconds (23-35) Glomerular Filtration Rate Calc 6.8 Lactate 1.8 mmol/L (0.7-2.1) Calcium Level 10.0 mg/dl (8.4-10.2) Phosphorus Level 5.4 mg/dl (2.5-4.5) Magnesium Level 2.0 mg/dl (1.7-2.2) Total Bilirubin 1.2 mg/dl (0.2-1.3) Aspartate Amino Transf (AST/SGOT) 35 U/L (0-35) Alanine Aminotransferase (ALT/SGPT) 89 U/L (0-56) Alkaline Phosphatase 281 U/L (0-126) Troponin I 0.031 ng/ml B-Type Natriuretic Peptide > 5000 pg/ml (0-100) Total Protein 7.0 g/dl (6.3-8.2) Albumin 4.0 g/dl (3.5-5.0) Lipase 53 U/L (23-300) Coagulation Test 02/12/19 14:20 Prothrombin Time 16.6 seconds Prothromb Time International Ratio 1.33 Activated Partial Thromboplast Time 33 seconds EKG/Imaging EKG Interpretation PATIENT NAME: TD HERNANDEZ : [id number] MR: [id number] V: [id number] EXAM DATE: [id number] ORDERING PHYSICIAN: VALDO CORRALES TECHNOLOGIST: Test Reason : Blood Pressure : / mmHG Vent. Rate : 052 BPM Atrial Rate : 052 BPM P-R Int : 228 ms QRS Dur : 098 ms QT Int : 504 ms P-R-T Axes : 070 -20 073 degrees QTc Int : 468 ms Sinus bradycardia with 1st degree AV block Left axis Nonspecific interventricular conduction delay Decreased R wave progression anteriorly Similar to previous Confirmed by COREY MYLES ([id number]) on 02/12/2019 3:18:27 PM Referred By: Confirmed By:COREY MYLES Imaging PATIENT NAME: Td Hernandez : 1950 MR: [id number] V: [id number] EXAM DATE: ORDERING PHYSICIAN: VALDO CORRALES TECHNOLOGIST: Location: [facility] [place] Patient: Td Hernandez : 1950 Visit/Account:[id number] Date of Sevice: 02/12/2019 CHEST PA LAT COMPARISON: 12/25/2018 HISTORY: Shortness of breath, chest pain, history of COPD FINDINGS: CARDIAC/VASC: No severe cardiomegaly, stable from previous. Vasculature is obscured, congestion is suspected similar to previous. MEDIASTINUM: No visible mass or adenopathy. LUNGS/PLEURA: Right upper lobe consolidation, worse than previous. Left lower lobe consolidation, progressed from previous. Small left effusion, larger than previous. Diffuse interstitial prominence bilaterally, possibly interstitial edema. BONES: Lower C-spine fusion changes. No acute fractures. OTHER:Negative. IMPRESSION: 1. Compared to 12/25/2018 worsening right upper lobe, left lower lobe consolidation and left pleural effusion. 2. Severe cardiomegaly which is stable. 3. Suspected vascular congestion, stable. ED Course/Re-evaluation ED Course Patient is a 69-year-old female here with complaints of increasing dyspnea, volume overload. Patient is a Tuesday dialysis patient for the past 7 years and reportedly has been up 15.8 kg from her dry weight. Patient was recently diagnosed with atrial fibrillation and was just started on Coumadin on Tuesday and was found to be subtherapeutic today with an INR 1.3. BNP came back greater than 5000, chest x-ray showed increased pulmonary edema and effusion. Patient was afebrile throughout course, resting comfortably on 8 L venture a mask which is increased from her baseline 4 L nasal cannula. Patient was 72% on her baseline oxygen requirement.. Patient denies chest pain but does describe shortness breath at rest. EKG showed sinus bradycardia. Due to the patient's significant volume overload, hypoxia and need for diuresis and dialysis, patient was arranged for transfer to [facility]. I discussed the patient with Dr. Guzman who is the hospitalist at [facility] who accepted the patient to stepdown unit. I updated the patient regarding these findings and the patient's the patient's family voiced understanding of plan. Decision to Disposition Date: February 12, 2019 Decision to Disposition Time: 15:39 Depart Departure Latest Vital Signs Vital Signs Date Time Temp Pulse Resp B/P (MAP) Pulse Ox O2 Delivery O2 Flow Rate FiO2 02/12/19 13:50 8.0 02/12/19 13:44 52 32 161/77 75 Room Air Impression: Primary Impression: CHF exacerbation Additional Impressions: Dyspnea Hypoxia Pulmonary edema Dependent on hemodialysis Condition: Condition Unchanged Disposition: XFER TO [facility] ([facility]) Referrals: ANDREA COLEMAN MD (PCP) Problem Qualifiers VALDO CORRALES DO February 12, 2019 13:41
[2019-02-12] MEDS ORDERED: LOSA50TA68 PO (13:58)
[2019-02-12] MEDS ORDERED: WARF5TAB23 PO (13:58)
--- NOTE | 2019-02-12 13:58 | EKG ---
FACILITY: [facility] [place] PATIENT NAME: TD HOLLIS : [id number] MR: [id number] V: [id number] EXAM DATE: ORDERING PHYSICIAN: VALDO CORRALES TECHNOLOGIST: Test Reason : Blood Pressure : / mmHG Vent. Rate : 052 BPM Atrial Rate : 052 BPM P-R Int : 228 ms QRS Dur : 098 ms QT Int : 504 ms P-R-T Axes : 070 -20 073 degrees QTc Int : 468 ms Sinus bradycardia with 1st degree AV block Left axis Nonspecific interventricular conduction delay Decreased R wave progression anteriorly Similar to previous Confirmed by COREY MYLES ([id number]) on 02/12/2019 3:18:27 PM Referred By: Confirmed By:COREY MYLES
[2019-02-12 14:34] LABS: PLATELET COUNT, AUTOMATED 263 K/uL (150-450)
[2019-02-12 14:59] LABS: INR 1.33
--- NOTE | 2019-02-12 15:05 | RADIOLOGY IMAGING REPORT ---
FACILITY: [facility] [place] PATIENT NAME: Roya Hernandez : 1950 MR: [id number] V: [id number] EXAM DATE: ORDERING PHYSICIAN: VALDO CORRALES TECHNOLOGIST: Location: [facility] [place] Patient: Roya Hernandez : 1950 Visit/Account:[id number] Date of Sevice: 02/12/2019 CHEST PA LAT COMPARISON: 12/25/2018 HISTORY: Shortness of breath, chest pain, history of COPD FINDINGS: CARDIAC/VASC: No severe cardiomegaly, stable from previous. Vasculature is obscured, congestion i s suspected similar to previous. MEDIASTINUM: No visible mass or adenopathy. LUNGS/PLEURA: Right upper lobe consolidation, worse than previous. Left lower lobe consolidation, p rogressed from previous. Small left effusion, larger than previous. Diffuse interstitial prominence bilaterally, possibly interstitial edema. BONES: Lower C-spine fusion changes. No acute fractures. OTHER:Negative. IMPRESSION: 1. Compared to 12/25/2018 worsening right upper lobe, left lower lobe consolidation and left pleural effusion. 2. Severe cardiomegaly which is stable. 3. Suspected vascular congestion, stable. Report Dictated By: Gee Calhoun at 02/12/2019 2:56 PM Report E-Signed By: Gee Calhoun at 02/12/2019 3:01 PM [id number]
[2019-02-12 16:30] VITALS: BP 138/57
== END 2019-02-12 17:10 | disposition short-term general hospital (02) ==
LOC: ER 13:53
DX: I50.9 Heart failure, unspecified (principal); R06.02 Shortness of breath; R09.02 Hypoxemia; J81.1 Chronic pulmonary edema; Z99.2 Dependence on renal dialysis; R00.1 Bradycardia, unspecified
CPT/HCPCS: 71046; 82040; 82247; 82310; 82374; 82435; 82565; 82947; 83605; 83690; 83735; 83880; 84075; 84100; 84132; 84155; 84295; 84443; 84450; 84460; 84484; 84520; 85025; 85610; 85730; 93005; 99285

== ENCOUNTER → 2019-02-12 | Outpatient (CLI) | payer MEDICARE, OTHER ==
[~2019-02-12] MED LIST changes: +DOCU-416 PO; +IPRA3AMP10 IH; +LOSA50TA68 PO; +METO25TA93 PO; +NEPH PO; +SERT25TA87 PO; +WARF5TAB23 PO
== END ==
LOC: AMB 16:53
PROVIDERS: ATTEND Nurse Practitioner
DX: I50.9 Heart failure, unspecified (principal); R06.00 Dyspnea, unspecified; Z99.2 Dependence on renal dialysis
CPT/HCPCS: A0425; A0426

== ENCOUNTER 2019-02-20 12:48 | Inpatient (IN) | payer MEDICARE, OTHER ==
[~2019-02-20] VITALS: Ht 165.1 cm; Wt 59.0 kg
[~2019-02-20 12:48] MED LIST changes: +LOSA50TA68 PO; +WARF5TAB23 PO
[2019-02-20 13:33] VITALS: BP 128/55
--- NOTE | 2019-02-20 13:55 | History & Physical ---
History of Present Illness Chief Complaint Weak History of Present Illness 69yo female with PMHx significant for ESRD on hemodialysis, a-fib, CHF, COPD, anxiety, dementia. She was recently admitted to [facility] with dyspnea, hypoxia, volume overload, pleural effusions, and CHF. Apparently, she had aggressive dialysis and therapeutic thoracentesis (no discharge summary is available). She reports significant improvement in her dyspnea and edema. She has had persistent generalized weakness and returns to [facility] for ongoing rehabilitative therapy. History Problems: (1) Anxiety and depression Status: Chronic (2) Gout Status: Chronic (3) Benign hypertension Status: Chronic (4) Hyperlipidemia Status: Chronic (5) Hypothyroidism Status: Chronic (6) COPD (chronic obstructive pulmonary disease) Status: Chronic (7) CHF (congestive heart failure) Status: Chronic (8) End stage renal disease Status: Chronic (9) Dependent on hemodialysis Status: Chronic (10) Atrial fibrillation Status: Chronic (11) Dementia Status: Chronic Home Meds Active Scripts Metoprolol Tartrate (METOPROLOL TARTRATE) 25 Mg Tablet, 25 MG PO BID, #60 TAB Prov:ANDREA COLEMAN MD 02/06/19 Sertraline Hcl (ZOLOFT) 25 Mg Tablet, 1 TAB PO QDAY PRN for ANXIETY, #90 TAB 1 Refill Prov:ANDREA COLEMAN MD 02/06/19 Losartan Potassium (LOSARTAN POTASSIUM) 50 Mg Tablet, 50 MG PO BID, #180 TAB 1 Refill Prov:ANDREA COLEMAN MD 01/24/19 Pantoprazole Sodium (PANTOPRAZOLE SODIUM) 40 Mg Tablet.dr, 40 MG PO QDAY, #30 TAB.SR 6 Refills Prov:ANDREA COLEMAN MD 12/19/18 Albuterol Sulfate 90 Mcg/Act (PROAIR HFA 90 MCG/ACT) 8.5 Gm Hfa.aer.ad, 2 PUFF IH QID PRN for SHORTNESS OF BREATH, #1 INHALER 3 Refills Prov:ANDREA COLEMAN MD 12/19/18 Reported Medications Losartan Potassium (COZAAR) 50 Mg Tablet, 50 MG PO BID 02/12/19 Warfarin Sodium (WARFARIN SODIUM) 5 Mg Tablet, 5 MG PO QDAY, TAB 02/12/19 Docusate Sodium (COLACE) 100 Mg Capsule, 100 MG PO QDAY PRN for constipation, CAPSULE 1-2 tabs as needed for constipation 01/08/19 Ranitidine Hcl (ZANTAC) 150 Mg Tablet, 150 MG PO QHS, TAB 01/08/19 Fluticasone/Vilanterol 100/25 Mcg/Inh (BREO ELLIPTA 100/25 MCG) 1 Each Aer.pow.ba, 1 INH INH QDAY, INH 12/19/18 Lanthanum Carbonate (FOSRENOL) 750 Mg Tab.chew, 750 MG PO TIDCF, TAB.CHEW 12/13/18 Cholecalciferol (Vitamin D3) (VITAMIN D3) 5,000 Unit Tablet, 5000 UNIT PO QDAY 12/08/18 [place]-3/Dha/Epa/Fish Oil (Fish Oil 1,200 mg Softgel) 360 Mg-1,200 Mg Capsule.dr, 1 EA PO BID 12/08/18 Vit B Complex & C No.13/Fa/D3 (NEPHROCAPS QT TABLET) Unknown Strength Tab.rapdis, PO 12/05/18 Aspirin (ASPIR 81) 81 Mg Tablet.dr, 1 TAB PO QDAY, TAB 12/05/18 Atorvastatin Calcium (LIPITOR) 40 Mg Tablet, 1 TAB PO HS, TAB 12/05/18 Trazodone Hcl (TRAZODONE HCL) 150 Mg Tablet, 300 MG PO QHS 12/05/18 Amlodipine Besylate (AMLODIPINE BESYLATE) 5 Mg Tablet, 10 MG PO QDAY, TAB 12/05/18 Duloxetine HCl (Duloxetine HCl) 60 Mg Capsule.dr, 30 MG PO DIRECTED take 2 tabs in the am take 1 tab in the evening 12/05/18 Levothyroxine Sodium (SYNTHROID) 88 Mcg Tablet, 88 MCG PO QDAY 12/05/18 Topiramate (TOPIRAMATE) 25 Mg Tablet, 25 MG PO BID 12/05/18 Allergies: Coded Allergies: No Known Allergies (Unverified Allergy, Unknown, 07/02/14) Patient History: Patient reports no known family medical history. Hx Smoking: Yes Smoking Status: Former Smoker Exposure to Second Hand Smoke?: Yes Hx Alcohol Use: No Social Drug Use: Currently Social Drugs: Marijuana Review of Systems Constitutional: No Fever, No Chills Neurological: Weakness Cardiovascular: No Chest Pain, No Palpitations Respiratory: Shortness of Breath, Cough Gastrointestinal: Nausea; No Vomiting Psychiatric: Depression Exam Vital Signs Vital Signs Date Time Temp Pulse Resp B/P (MAP) Pulse Ox O2 Delivery O2 Flow Rate FiO2 02/20/19 13:33 99.0 72 20 128/55 (79) 96 Nasal Cannula 4.0 General Appearance: Alert, Awake Neuro: No Gross deficits, Other (generalized weakness) Eyes: PERRLA ENT: Oropharynx Clear Neck: No Masses Cardiovascular: Other (Fairly regular, slightly bradycardic with systolic/diastolic murmur) Respiratory: Other (diminished at bases) Chest: No Tenderness GI: Abd Soft and Non-Tender Extremities: Warm, Perfused Integumentary: Generalized Fragile Skin Psych: Other (oriented to person, but only partially to place and time.) Assessment and Plan Problems: (1) CHF (congestive heart failure) Status: Chronic Assessment & Plan: She appears to have much better volume status. She will continue with her three times weekly dialysis. Will plan on checking CXR in a few days. Will try to get records as well. (2) End stage renal disease Status: Chronic Assessment & Plan: She will continue with her 3x/week dialysis. (3) Atrial fibrillation Status: Chronic Assessment & Plan: She is currently on low dose metoprolol and warfarin. Will monitor heart rate. Watch INR as well. (4) Hypothyroidism Status: Chronic Assessment & Plan: Continue replacement therapy. Review labs to see if she has had recent TSH. (5) Anxiety and depression Status: Chronic Assessment & Plan: She has been managed with trazodone, sertraline, duloxetine in the past. Will try to get records to see what her current regimen has been. (6) Dementia Status: Chronic Assessment & Plan: She appears to have some fairly significant cognitive dysfunction. Will try to see how she compares to her baseline. Venous Thromboembolism Antithrombotics Is Pt On Any Antithrombotics?: Yes COREY MYLES MD February 20, 2019 13:55
[2019-02-20] MEDS ORDERED: DEXTROSE 37.5 GM GEL..GRAM. PO PRN (14:55)
[2019-02-20] MEDS ORDERED: ALBUTEROL 8 GM INHALER INH PRN (14:55)
[2019-02-20] MEDS ORDERED: ALBUTEROL/IPRATROPIUM 3 ML NEB NEB PRN (15:00)
--- NOTE | 2019-02-20 15:26 | Medical Nutrition Therapy ---
Nutrition Anthropometrics Height (Inches): 65.00 Height (Calculated Centimeters: [phone] Weight (Pounds): 134 Weight (Calculated Kilograms): 61.037 BMI: 22.4 Kranthi Nutrition Score: Kranthi Nutrition Risk Score: Dietary Referral Nutrition Risk Factors: Special Diet Nutrition Risk Comment: Physical Findings Physical Appearance: WNR Skin Appearance Skin Appearance: Edema Edema Location Modifier: Edema Location: Type of Edema: Degree of Edema: Gastrointestinal Symptoms GI Symtoms: Tube Present: Bowel Sounds: Recent Bowel Pattern: Stool Characteristics: Nutritional Diagnosis Nutritional Risk Acuity 1: Acute/ES Renal Past Medical History: ESRD on dialysis, CHF, COPD, dementia, hypothyroid Nutritional Acuity: 1-High (on dialysis) Nutrition Diagnosis: Increased Nutrient Needs, Decreased Nutrient Needs Nutrition Etiology: Physiological Causes Nutrition Problem/Etiology/Sym: Increased potein needs, decreased K+, Na, fluid, phos needs r/t ESRD recieving dialysis tx AEB BUN 32, creatinine 6.1 Energy Requirement: 1470 (MSJ) Protein Requirement: 73 (1.3gm/kg) Fluid Requirement: 1500 Diet Type: Renal High Protein Nutrition Intervention: Cont diet as ordered, Encourage intake, Between meal supplement Additional Diet Restrictions: PUT PROTEIN POWDER ON APPROPRIATE FOODS, OFFER NUTR SUPPLMENT WITH EACH DANIE Diet Comment To RSA: discourage: potatoes, oranges, tomatoes, banana, high Na foods, beans,nuts Nutrition Monitoring & Eval Nutrition Goals: Eat 75-100% Meal RD Patient Assessment Time: [address] Assessment Type: RD Assessment Patient Nutrition Acuity: 1-High Follow Up Date: February 27, 2019 Nutritional Comment: 02/20 Pt admitted with dx ESRD on dialysis tx. Encourage pt to comply with ESRD diet but pt has right to request foods not recommended on diet. Will put protien powder in foods and offer nutr supplments to increase kcal and protein intake. Will cont to monitor and encourage intake. CONG HCAND February 20, 2019 15:26
[2019-02-20] MEDS: WARFARIN SOD 2 MG TAB PO SCH (15:46)
--- NOTE | 2019-02-20 16:17 | Consultant Pharmacy Review ---
Foreign Exchange Student Coordinator Review Medication Review Do All Mecications have a Diag: No (Protonix) Drugs to Use With Caution Medications Which Cause SIADH: SSRIs Pneumococcal Vaccine HX Pneumo Vac ([id number]): Yes (does not know when ) HX Pneumo Vac (Pneumovax): Yes (does not know when ) Comments Regarding the Review Patient appears to be up to date on Pneumococcal vaccinations. The Atorvastatin should be dosed either 2 hours before or 2 hours after the Fosrenol so the Atrovastatin time was adjusted. ALBA LOZA February 20, 2019 16:17
[2019-02-20] MEDS: SALMETEROL/FLUTIC 100/50 1 INH INH SCH (16:49)
[2019-02-20] MEDS ORDERED: LANTHANUM CARBONATE 500 MG PO SCH (17:00)
--- NOTE | 2019-02-20 17:57 | OT ECF NOTE ---
Type of Note: Initial Note Primary Medical Diagnosis: Generalized weakness s/p recent hospital admission (see EMR) Occupational Therapy Evaluation Date: 02/20/19 SUBJECTIVE: Prior Hospitalization: [facility]) 02/12/19-02/20/19 Prior Level of Function: Independent with ADLs. Assist from family for IADLs. Pt has been living with with son/xlhgcqxa-iw-kxs and granddaughter since November 2018. Prior, pt was living in [place] with spouse who recently in November 2018. Pt ambulates with a 4WW about 25ft to bathroom. She is alone throughout the day while family is at work. Family provides simple pre- made meals for breakfast/lunch when they are at work. Prior Living Status: Single level house Living with family Assist by family Community Services: No known needs Home Accessibility: One step into home All needs on one level Tub/shower combination Equipment Owned: Rollator Tub/shower chair Medical Complications/Past Medical History: ESRD-on dialysis M/W/F, AFib, Type II DM, COPD, Memory impairment, Anemia, Depression Psychosocial Support: Supportive family that patient resides with Pain Scale (0-10): None reported at time of evaluation OBJECTIVE: Strength: MMT: Right Left Shoulder Flexion WFL WFL Elbow Flexion WFL WFL Wrist Extension WFL WFL Proofer WFL WFL (5= normal, 4= good, 3= fair, 2= poor, 1= trace) ROM: Both upper extremities, WFL Sensation: No paraesthesia reported Functional Transfer: Assistive Device: Gait belt, Rolling walker Transfer Ability: CGA. Ambulation x20ft. ADL: Upper body dressing: Assistive device: Upper body dressing ability: N/T Lower body dressing: Assistive device: Lower body dressing ability: N/T Toileting: Assistive device: Toileting ability: N/T Grooming/hygiene: Assistive device: Grooming ability: N/T Bathing: Assistive device: Son reports recent increased difficulty with safely completing bathtub transfer Bathing ability: N/T Standardized Assessment: Bhaskar Index of Activities of Daily Livin/20 upon initial evaluation (02/20/19). ASSESSMENT: Roya presents to [facility] with decreased endurance and balance impacting safety and independence with ADLs. She is below baseline function and will benefit from skilled OT services to improve activity tolerance and optimize independence for ADLs prior to discharge home. Family interested in information regarding medical alert systems. Problem List/Current Limitations: Decreased activity tolerance Decreased strength Generalized weakness Poor safety awareness Decreased attention Decreased initiation Short Term Goals: 1) Pt will be Mod (I) UB/LB dressing. 2) Pt will be Mod (I) toilet task. 3) Pt will be Independent grooming/hygiene. 4) Pt Bhaskar Index of ADLs score will improve by 2 points. 5) Pt will be SBA shower task. 6) Pt will be (I) light meal prep task. Fpc Goals: Return home with [facility] Patient Goals: Return home Rehabilitation Prognosis: Good Barriers to Discharge: Medical comorbidities PLAN: The patient will benefit from skilled occupational therapy services 3-5 times per week for 2 weeks including: Ther ex ADL training Safety training Ther act IADL training Transfer training Adaptive equip training Bed mobility Energy conservation Thank you for this referral. If you have any questions, concerns, or comments about this report or plan, please contact me at . Ellen Lanier MS, OTR/L Occupational Therapist JERRY
--- NOTE | 2019-02-20 19:25 | NUR ---
Physical Therapy Impression PT subjective eval completed with chart review and pt interview. Pt fairly fatigued late in the day and declines mobility eval at this time, but was agreeable to address goal setting for her current home environment. Physical Therapy Goals 1. Pt to be indep with HEP for strengthening in supine, sitting and standing x 10 reps each 2. Pt to be modified indep with sit to/from supine and bed mobility 3. Pt to be modified indep with sit to/from stand with least restrictive device for safety 4. Pt to ambulate x 100' with proper energy conservation techniques and PLB to maintain O2 sats in safe range 5. Pt to alexis up/down platform step with least restrictive device to facilitate return to community mobility. Patient's Goals
[2019-02-20] MEDS: METOPROLOL TART 50 MG TAB PO SCH (20:32)
[2019-02-20] MEDS: traZODone HCL 50 MG TAB PO SCH (20:32)
[2019-02-21] MEDS: SALMETEROL/FLUTIC 100/50 1 INH INH SCH ×2 (05:51→18:00)
[2019-02-21] MEDS: LEVOTHYROXINE SOD 0.088 MG TAB PO SCH (05:58)
[2019-02-21 08:00] VITALS: BP 156/73
[2019-02-21 08:06] LABS: INR 2.04
[2019-02-21] MEDS: SERTRALINE HCL 50 MG TAB PO SCH (09:33)
[2019-02-21] MEDS: PANTOPRAZOLE SOD 40 MG TABEC PO SCH (09:33)
[2019-02-21] MEDS: LOSARTAN POTASSIUM 50 MG TAB PO SCH (09:33)
[2019-02-21] MEDS: ASPIRIN 81 MG ENTERIC COATED PO SCH (09:33)
[2019-02-21] MEDS: METOPROLOL TART 50 MG TAB PO SCH ×2 (09:33→20:35)
[2019-02-21] MEDS: TOPIRAMATE 25 MG TAB PO SCH (09:33)
[2019-02-21] MEDS: LANTHANUM CARBONATE 500 MG PO SCH ×3 (09:34→17:00)
--- NOTE | 2019-02-21 10:21 | NUR ---
Occupational Therapy Impression SBA bed mobility in/out. CGA sit<>stands x4 with RW. Set-up UB/LB dressing. Pt declining further mobility/ADLs after dressing activity due to fatigue. SpO2 WNL on 4L. Continue POC. Occupational Therapy Goals 1) Pt will be Mod (I) UB/LB dressing. 2) Pt will be Mod (I) toilet task. 3) Pt will be Independent grooming/hygiene. 4) Pt Bhaskar Index of ADLs score will improve by 2 points. 5) Pt will be SBA shower task. 6) Pt will be (I) light meal prep task. Patient's Goal
[2019-02-21] MEDS: ATORVASTATIN 40 MG TAB PO SCH (11:36)
[2019-02-21] MEDS: WARFARIN SOD 2 MG TAB PO SCH (13:35)
[2019-02-21] MEDS ORDERED: IPRA3AMP10 IH (15:41)
[2019-02-21] MEDS ORDERED: NEPH PO (15:41)
[2019-02-21 20:10] VITALS: BP 138/60
[2019-02-21] MEDS: traZODone HCL 50 MG TAB PO SCH (20:35)
[2019-02-22] MEDS: LEVOTHYROXINE SOD 0.088 MG TAB PO SCH (05:34)
[2019-02-22] MEDS: SALMETEROL/FLUTIC 100/50 1 INH INH SCH ×2 (05:43→18:25)
[2019-02-22 06:24] LABS: INR 1.75
[2019-02-22 07:30] VITALS: BP 139/66
[2019-02-22] MEDS: LANTHANUM CARBONATE 500 MG PO SCH ×3 (08:30→17:16)
--- NOTE | 2019-02-22 08:33 | RADIOLOGY IMAGING REPORT ---
FACILITY: [facility] PATIENT NAME: Roya Hernandez : 1950 MR: [id number] V: [id number] EXAM DATE: ORDERING PHYSICIAN: COREY MYLES TECHNOLOGIST: Location: [facility] Patient: Roya Hernandez : 1950 Visit/Account:[id number] Date of Sevice: 02/22/2019 CHEST PA LAT INDICATION: COMPARISON: 02/12/2019 FINDINGS: Cardiac silhouette remains enlarged. There is increased pulmonary vascular congestion with borderlin e pulmonary edema pattern. Opacities within the right upper lobe and left lower lobe have improved. There is a loculated left p leural effusion present and a small right pleural effusion. Both effusions appear stable. Lung volu mes are hyperexpanded consistent with COPD. IMPRESSION: 1. Improving pulmonary edema pattern. Cardiomegaly with pulmonary vascular congestion persists jackson wade. 2. Improved airspace opacities within the right upper and left lower lobes 3. Stable loculated left pleural effusion and trace right pleural effusion. Report Dictated By: Delvin Lilly at 02/22/2019 8:26 AM Report E-Signed By: Delvin Lilly at 02/22/2019 8:28 AM WSN:AZ
[2019-02-22] MEDS: LOSARTAN POTASSIUM 50 MG TAB PO SCH (09:02)
[2019-02-22] MEDS: ASPIRIN 81 MG ENTERIC COATED PO SCH (09:02)
[2019-02-22] MEDS: METOPROLOL TART 50 MG TAB PO SCH ×2 (09:03→20:44)
[2019-02-22] MEDS: SERTRALINE HCL 50 MG TAB PO SCH (09:03)
[2019-02-22] MEDS: PANTOPRAZOLE SOD 40 MG TABEC PO SCH (09:03)
[2019-02-22] MEDS: TOPIRAMATE 25 MG TAB PO SCH (09:03)
--- NOTE | 2019-02-22 10:36 | NUR ---
Occupational Therapy Impression Pt. performed bed mobility with SBA, UB dressing with QUINTANILLA and LB dressing with Min A. Pt. performed all grooming activities seated at EOB with QUINTANILLA. Continue with POC. Occupational Therapy Goals 1) Pt will be Mod (I) UB/LB dressing. 2) Pt will be Mod (I) toilet task. 3) Pt will be Independent grooming/hygiene. 4) Pt Bhaskar Index of ADLs score will improve by 2 points. 5) Pt will be SBA shower task. 6) Pt will be (I) light meal prep task. Patient's Goal
[2019-02-22] MEDS: ATORVASTATIN 40 MG TAB PO SCH (10:59)
--- NOTE | 2019-02-22 11:23 | SLP EVALUATION SUMMARY REPORT ---
INITIAL SPEECH THERAPY EVALUATION REPORT Cognitive Communication Assessment Patient Name: Roya Hernandez Date of Evaluation: 02/22/2019 Patient : [birth year] Clinician: Linda Lanier M.S., CCC-SORTER PACKER Treatment Dx: BACKGROUND The patient is a 69-year-old female who presents to the [facility] for further rehabilitation following hospitalization at [facility] with dyspnea, hypoxia, volume overload, PEs, and CHF. She received aggressive dialysis (ESRD) and therapeutic thoracentesis. The pt was referred for an ST assessment to analyze cognitive linguistic status secondary to staff concerns re: memory impairment. Primary Medical Dx: Generalized weakness s/p recent hospital admission Past medical Hx: ESRD, afib, DM2, COPD, memory impairment / dementia, anemia, depression Prior Level of Function: The pt resides with her son/jkoysbij-dj-wqj and granddaughter. She was previously living in [place] with her spouse; however, he recently in November 2018. The pt is alone throughout the day while her family is at work. They provide assistance with simple, pre-made meals for breakfast and lunch when they are away. Pt reports she independently manages finances, medications, and driving. Family not present to verify. However, I would have significant concerns about the pt returning to these activities based on assessment results. LANGUAGE/COGNITION The Edison Cognitive Assessment (MoCA), Version 7.3 was administered with the following results: - Total Score (TS): 15/30 (26/30=WNL). - moderate cognitive linguistic deficits -Cognitive Domains Demonstrating Deficits: attention, immediate recall, short- term memory, working memory, problem solving, processing speed, executive functions -Cognitive Domains Demonstrating Strength: orientation, mental abstraction, object naming, visuospatial skills. Pt exhibits moderate, widespread cognitive linguistic impairments characterized by deficits in attention, memory (immediate/short-term/working), problem solving, processing speed, and executive functions. Pt often appeared to lose track of instructions part-way through task completion, requiring multiple repetitions of verbal information. Pt also struggled to retain information both immediately and following a brief delay. Deficits in sustained attention appear to negatively impact retention of novel information, and new learning for appropriate trial and error/problem solving skills. The pt exhibited reduced insight into areas of cognitive linguistic impairment without endorsement of errors or acknowledgement of task difficulty. Relative areas of strength were noted in visuospatial skills, temporal, environmental, and situational orientation. Etiology appears consistent with diagnosis of dementia. SPEECH: WFL. VOICE: WFL. DYSPHAGIA: No. RECOMMENDATIONS 1. ST 2x/wk, 2wks 2. ST at d/c 3. May require increased level of assistance/supervision at discharge (including support with all IADLs) PROGNOSIS: Good. Strong insight, motivated to participate. PLAN OF CARE Short Term Goals 1. Pt will employ compensatory memory strategies to facilitate recall of functional information (e.g., daily events) with 90% accuracy and mod verbal/visual cues to support increased participation in daily routine. Long-Term Goals 1. The patient will demonstrate functional cognitive communication status for safety and maximized independence upon anticipated d/c to prior living environment w/ appropriate access to home and community resources. Thank you for this referral. Please call [phone] to contact with any questions or concerns. Linda Lanier M.S., CCC-SORTER PACKER [*] [facility]
[2019-02-22] MEDS: WARFARIN SOD 2 MG TAB PO SCH (13:09)
[2019-02-22 17:40] VITALS: BP 133/62
[2019-02-22] MEDS: traZODone HCL 50 MG TAB PO SCH (20:44)
[2019-02-23] MEDS: LEVOTHYROXINE SOD 0.088 MG TAB PO SCH (05:38)
[2019-02-23] MEDS: SALMETEROL/FLUTIC 100/50 1 INH INH SCH ×2 (06:19→17:05)
[2019-02-23 08:00] VITALS: BP 159/67
[2019-02-23] MEDS: LOSARTAN POTASSIUM 50 MG TAB PO SCH (09:04)
[2019-02-23] MEDS: TOPIRAMATE 25 MG TAB PO SCH (09:04)
[2019-02-23] MEDS: METOPROLOL TART 50 MG TAB PO SCH ×2 (09:04→20:44)
[2019-02-23] MEDS: ASPIRIN 81 MG ENTERIC COATED PO SCH (09:04)
[2019-02-23] MEDS: SERTRALINE HCL 50 MG TAB PO SCH (09:04)
[2019-02-23] MEDS: PANTOPRAZOLE SOD 40 MG TABEC PO SCH (09:04)
[2019-02-23] MEDS: LANTHANUM CARBONATE 750 MG PO SCH ×3 (09:05→16:28)
[2019-02-23] MEDS: ATORVASTATIN 40 MG TAB PO SCH (11:09)
--- NOTE | 2019-02-23 14:06 | NUR ---
Warfarin not given on time due to patient being in Dialysis. Passed onto next shift.
[2019-02-23] MEDS: WARFARIN SOD 2 MG TAB PO SCH (16:27)
--- NOTE | 2019-02-23 16:32 | NUR ---
This Physical Therapist or Leather Leveler was present for the entire physical therapy session directing the services, making the skilled judgement, and was not engaged in treating another patient or doing another task at the same time as the treatment session. Addendum: 02/23/19 at 1632 by EZEKIEL POLLARD PT Amended: Links added.
--- NOTE | 2019-02-23 16:32 | NUR ---
Physical Therapy Impression Pt. showed overall improved mobility and strength. Pt was independent with bed mobility was able to untangle self from blanket and tf to sitting EOB without difficulty. Pt. ambulated 2x 70 ft w/CGA, O2, and RW. Pt took a sitting rest on EOB between sets. spO2 was 86% after first ambulation, quickly back up to 90% before walking again. Pt brought spO2 back up via deep breathing without cues. Pt would benefit from skilled PT care to further improve endurance. Pt was left supine in bed with call light in reach and spO2 at 90%. Physical Therapy Goals 1. Pt to be indep with HEP for strengthening in supine, sitting and standing x 10 reps each 2. Pt to be modified indep with sit to/from supine and bed mobility 3. Pt to be modified indep with sit to/from stand with least restrictive device for safety 4. Pt to ambulate x 100' with proper energy conservation techniques and PLB to maintain O2 sats in safe range 5. Pt to alexis up/down platform step with least restrictive device to facilitate return to community mobility. Patient's Goals
[2019-02-23 16:45] VITALS: BP 116/55
[2019-02-23] MEDS: traZODone HCL 50 MG TAB PO SCH (20:44)
[2019-02-24] MEDS: LEVOTHYROXINE SOD 0.088 MG TAB PO SCH (04:48)
[2019-02-24] MEDS: SALMETEROL/FLUTIC 100/50 1 INH INH SCH ×2 (05:36→17:55)
[2019-02-24 06:41] LABS: INR 1.39
--- NOTE | 2019-02-24 07:43 | NUR ---
Resident has been angry with staff for trying to enforce her fluid restriction and her wearing of her oxygen. Resident has yelled at staff, slamming her hand on bedside table insisting that she gets ice/water now. Gave resident 0600 medication early so that her water intake could be combined with her taking her Synthroid.
[2019-02-24 07:50] VITALS: BP 153/73
[2019-02-24] MEDS: LANTHANUM CARBONATE 750 MG PO SCH ×3 (09:03→17:26)
[2019-02-24] MEDS: LOSARTAN POTASSIUM 50 MG TAB PO SCH (09:04)
[2019-02-24] MEDS: SERTRALINE HCL 50 MG TAB PO SCH (09:04)
[2019-02-24] MEDS: ASPIRIN 81 MG ENTERIC COATED PO SCH (09:04)
[2019-02-24] MEDS: PANTOPRAZOLE SOD 40 MG TABEC PO SCH (09:04)
[2019-02-24] MEDS: TOPIRAMATE 25 MG TAB PO SCH (09:04)
[2019-02-24] MEDS: METOPROLOL TART 50 MG TAB PO SCH ×2 (09:04→20:47)
[2019-02-24] MEDS: ATORVASTATIN 40 MG TAB PO SCH (10:10)
--- NOTE | 2019-02-24 12:33 | Miscellaneous Provider Note ---
Miscellaneous Provider Note Note INR dropping. Increase warfarin to 5mg s/t/t/s and 2.5mg m/w/f. INR daily. LEVI LIM MD February 24, 2019 12:33
[2019-02-24] MEDS: WARFARIN SOD 5 MG TAB PO SCH (12:46)
--- NOTE | 2019-02-24 12:49 | NUR ---
Pt is sitting on side of bed without O2 on. Pt has increased respirations and SPO2 at 85% on RA. Teaching provided re: O2 use, pt states "my granddaughter was here and wanted it". Will continue to monitor.
[2019-02-24 15:35] VITALS: BP 149/77
[2019-02-24] MEDS: traZODone HCL 50 MG TAB PO SCH (20:46)
[2019-02-25] MEDS: LEVOTHYROXINE SOD 0.088 MG TAB PO SCH (05:17)
[2019-02-25] MEDS: SALMETEROL/FLUTIC 100/50 1 INH INH SCH ×2 (05:34→17:59)
[2019-02-25 06:29] LABS: INR 1.59
[2019-02-25 07:32] VITALS: BP 129/67
[2019-02-25] MEDS: SERTRALINE HCL 50 MG TAB PO SCH (09:06)
[2019-02-25] MEDS: LOSARTAN POTASSIUM 50 MG TAB PO SCH (09:06)
[2019-02-25] MEDS: LANTHANUM CARBONATE 750 MG PO SCH ×3 (09:06→17:44)
[2019-02-25] MEDS: ASPIRIN 81 MG ENTERIC COATED PO SCH (09:07)
[2019-02-25] MEDS: TOPIRAMATE 25 MG TAB PO SCH (09:07)
[2019-02-25] MEDS: METOPROLOL TART 50 MG TAB PO SCH ×2 (09:07→20:18)
[2019-02-25] MEDS: PANTOPRAZOLE SOD 40 MG TABEC PO SCH (09:07)
[2019-02-25] MEDS: ATORVASTATIN 40 MG TAB PO SCH (11:06)
--- NOTE | 2019-02-25 11:56 | Medical Nutrition Therapy ---
Nutrition Anthropometrics Height (Inches): 65.00 Height (Calculated Centimeters: 165.898247 Weight (Pounds): 135 Weight (Calculated Kilograms): 61.235 BMI: 22.4 Kranthi Nutrition Score: Adequate Kranthi Nutrition Risk Score: 18 Dietary Referral Nutrition Risk Factors: Special Diet Nutrition Risk Comment: Nutritional Diagnosis Nutritional Risk Acuity 1: Acute/ES Renal Past Medical History: ESRD on dialysis, CHF, COPD, dementia, hypothyroid Nutritional Acuity: 1-High (on dialysis) Nutrition Diagnosis: Increased Nutrient Needs, Decreased Nutrient Needs Nutrition Etiology: Physiological Causes Nutrition Problem/Etiology/Sym: Increased potein needs, decreased K+, Na, fluid, phos needs r/t ESRD recieving dialysis tx AEB BUN 32, creatinine 6.1 Energy Requirement: 1470 (MSJ) Protein Requirement: 73 (1.3gm/kg) Fluid Requirement: 1500 Diet Type: Renal High Protein Nutrition Intervention: Cont diet as ordered, Encourage intake, Between meal supplement Additional Diet Restrictions: LIMIT FLUIDS TO 120ML(1/2C) PER MEAL-(NUTR SUPPLMENT) OR FLUID + MAGIC CUP Diet Comment To RSA: discourage: potatoes, oranges, tomatoes, banana, high Na foods, beans,nuts Nutrition Monitoring & Eval Nutrition Goals: Eat 75-100% Meal Nutrition Follow-Up: Good Intake RD Patient Assessment Time: [address] Assessment Type: RD Re-Assessment Patient Nutrition Acuity: 1-High Follow Up Date: Mar 06, 2019 Nutritional Comment: 02/20 Pt admitted with dx ESRD on dialysis tx. Encourage pt to comply with ESRD diet but pt has right to request foods not recommended on diet. Will put protien powder in foods and offer nutr supplments to increase kcal and protein intake. Will cont to monitor and encourage intake. CONG CHAND February 25, 2019 11:56
[2019-02-25] MEDS: WARFARIN SOD 5 MG TAB PO SCH (12:26)
--- NOTE | 2019-02-25 14:18 | NUR ---
Patient had large liquid soft bm incontinent all over bed, inside her clothes, brief was not on. BM went onto the floor from the bed to the toilet. The BM hit the floor in the bathroom, and all over toilet seat. Patient was found self- transferring in the restroom. Brief was put on patient to be transferred to shower room. Patient was given shower, which patient was still going (BM). Once patient was clean, dried off and dressed with new brief. Patient was then taken back to room, and placed back in bed. Where daily weight was taken. Addendum: 02/25/19 at 1422 by CHRISTIE SWARTZ Amended: Links added.
[2019-02-25 16:25] VITALS: BP 151/80
[2019-02-25] MEDS: traZODone HCL 50 MG TAB PO SCH (20:17)
[2019-02-26] MEDS: LEVOTHYROXINE SOD 0.088 MG TAB PO SCH (05:22)
[2019-02-26] MEDS: SALMETEROL/FLUTIC 100/50 1 INH INH SCH ×2 (05:46→17:25)
[2019-02-26 06:09] LABS: INR 2.02
[2019-02-26 07:23] VITALS: BP 145/74
[2019-02-26] MEDS: LANTHANUM CARBONATE 750 MG PO SCH ×3 (07:57→18:31)
[2019-02-26] MEDS: ASPIRIN 81 MG ENTERIC COATED PO SCH (08:34)
[2019-02-26] MEDS: TOPIRAMATE 25 MG TAB PO SCH (08:34)
[2019-02-26] MEDS: METOPROLOL TART 50 MG TAB PO SCH ×2 (08:34→20:32)
[2019-02-26] MEDS: PANTOPRAZOLE SOD 40 MG TABEC PO SCH (08:35)
[2019-02-26] MEDS: LOSARTAN POTASSIUM 50 MG TAB PO SCH (08:35)
[2019-02-26] MEDS: SERTRALINE HCL 50 MG TAB PO SCH (08:38)
--- NOTE | 2019-02-26 09:43 | NUR ---
Physical Therapy Impression Patient instructed with gait training with FWW ~90 feet with one seated rest break. Patient was on 3L of oxygen and would desat to 86% but with cuing to breath through her nose would come up to 91% quickly. Patient was fatigued at the end of therapy was able to transfer I back into bed. Patient was I with bed mobility and SBA with STS transfers. Physical Therapy Goals 1. Pt to be indep with HEP for strengthening in supine, sitting and standing x 10 reps each 2. Pt to be modified indep with sit to/from supine and bed mobility 3. Pt to be modified indep with sit to/from stand with least restrictive device for safety 4. Pt to ambulate x 100' with proper energy conservation techniques and PLB to maintain O2 sats in safe range 5. Pt to alexis up/down platform step with least restrictive device to facilitate return to community mobility. Patient's Goals
[2019-02-26] MEDS: ATORVASTATIN 40 MG TAB PO SCH (10:44)
--- NOTE | 2019-02-26 12:10 | NUR ---
Patient refused to use restroom, patient agreed to try to use restroom. Once sitting checked brief and it was full of incon. BM liquid. I asked the patient if she felt when she had gone or if it was in her brief, the patient responded "no I didnt feel it, I need to see a doctor." Cleaned up patient and changed into a new brief, and a clean night gown, patient is out of clothes for the time being. Patient went back to bed and fell back to sleep. Addendum: 02/26/19 at 1214 by CHRISTIE SWARTZ Amended: Links added.
--- NOTE | 2019-02-26 12:12 | NUR ---
CHRISTO completed 5-day MDS with pt. C: 12, D: 00, E: no concerns, Q: pt plans to DC to community, no referrals yet but may be needed. Will continue to follow for DC needs.
[2019-02-26] MEDS ORDERED: WARFARIN SOD 2.5 MG TAB PO SCH (13:00)
[2019-02-26] MEDS: traZODone HCL 50 MG TAB PO SCH (20:31)
[2019-02-27] MEDS: SALMETEROL/FLUTIC 100/50 1 INH INH SCH ×2 (05:25→17:10)
[2019-02-27] MEDS: LEVOTHYROXINE SOD 0.088 MG TAB PO SCH (05:41)
[2019-02-27 06:25] LABS: INR 1.85
[2019-02-27 08:40] VITALS: BP 147/70
[2019-02-27] MEDS: LANTHANUM CARBONATE 750 MG PO SCH ×3 (08:46→17:46)
[2019-02-27] MEDS: METOPROLOL TART 50 MG TAB PO SCH ×2 (08:47→21:16)
[2019-02-27] MEDS: LOSARTAN POTASSIUM 50 MG TAB PO SCH (08:47)
[2019-02-27] MEDS: TOPIRAMATE 25 MG TAB PO SCH (08:47)
[2019-02-27] MEDS: PANTOPRAZOLE SOD 40 MG TABEC PO SCH (08:47)
[2019-02-27] MEDS: SERTRALINE HCL 50 MG TAB PO SCH (08:47)
[2019-02-27] MEDS: ASPIRIN 81 MG ENTERIC COATED PO SCH (08:47)
--- NOTE | 2019-02-27 10:30 | NUR ---
Physical Therapy Impression Patient instructed in gait training with FWW with cuing for breathing through her nose. Patient ambulated 170 feet CGA and then had a seated rest her oxygen dropped to 89% but was back up to 91% after two deep breaths. Patient then ambulated another 280 feet with CGA and her oxygen was above 91% when she returned to bed. Patient was on 4L of oxygen with ambulation. Patient was I with bed mobility and transfers. Physical Therapy Goals 1. Pt to be indep with HEP for strengthening in supine, sitting and standing x 10 reps each 2. Pt to be modified indep with sit to/from supine and bed mobility 3. Pt to be modified indep with sit to/from stand with least restrictive device for safety 4. Pt to ambulate x 100' with proper energy conservation techniques and PLB to maintain O2 sats in safe range 5. Pt to alexis up/down platform step with least restrictive device to facilitate return to community mobility. Patient's Goals
[2019-02-27] MEDS: ATORVASTATIN 40 MG TAB PO SCH (11:00)
--- NOTE | 2019-02-27 11:23 | NUR ---
ST Encounter Initiated memory book to facilitate recall of functional information and prospective thinking for upcoming events. Pt required max to mod assist for task initiation. Following initiation, pt appeared to lose track of instructions or task progression part-way through completion. Min cues were provided to promote awareness of errors and for redirection. It appears that deficits in attention and memory continue to impact new learning for appropriate trial and error/problem solving skills. Recommend HH ST and daily supervision with elevated assistance for all IADLs to optimize safety at discharge.
[2019-02-27] MEDS ORDERED: WARFARIN SOD 5 MG TAB PO SCH (13:00)
[2019-02-27 16:15] VITALS: BP 138/61
[2019-02-27] MEDS: traZODone HCL 50 MG TAB PO SCH (21:16)
[2019-02-28] MEDS: SALMETEROL/FLUTIC 100/50 1 INH INH SCH ×2 (05:19→18:36)
[2019-02-28] MEDS: LEVOTHYROXINE SOD 0.088 MG TAB PO SCH (05:23)
[2019-02-28 06:40] LABS: INR 1.93
[2019-02-28 07:39] VITALS: BP 145/70
[2019-02-28 08:01] VITALS: BP 121/68
[2019-02-28] MEDS: METOPROLOL TART 50 MG TAB PO SCH ×2 (08:53→20:23)
[2019-02-28] MEDS: SERTRALINE HCL 50 MG TAB PO SCH (08:54)
[2019-02-28] MEDS: ASPIRIN 81 MG ENTERIC COATED PO SCH (08:54)
[2019-02-28] MEDS: TOPIRAMATE 25 MG TAB PO SCH (08:54)
[2019-02-28] MEDS: LOSARTAN POTASSIUM 50 MG TAB PO SCH (08:54)
[2019-02-28] MEDS: PANTOPRAZOLE SOD 40 MG TABEC PO SCH (08:54)
[2019-02-28] MEDS: LANTHANUM CARBONATE 750 MG PO SCH ×3 (08:58→17:00)
[2019-02-28] MEDS: ATORVASTATIN 40 MG TAB PO SCH (11:16)
--- NOTE | 2019-02-28 11:49 | NUR ---
Physical Therapy Impression Patient instructed in gait training with FWW ~190 feet SBA with 2 seated rest breaks on 4L of oxygen. Patient instructed for deep breathing through nose when resting. Patient only desat to 89% and recovered quickly. Patient reports of increased fatigue today but did not affect therapy. Patient is ready to be discharged to home tomorrow. Patient is I with bed mobility and does not need the rail. Patient has met goals 2-4. Patient is to be discharged to her home where she lives with son and daughter in law and will have services. Physical Therapy Goals 1. Pt to be indep with HEP for strengthening in supine, sitting and standing x 10 reps each 2. Pt to be modified indep with sit to/from supine and bed mobility 3. Pt to be modified indep with sit to/from stand with least restrictive device for safety 4. Pt to ambulate x 100' with proper energy conservation techniques and PLB to maintain O2 sats in safe range 5. Pt to alexis up/down platform step with least restrictive device to facilitate return to community mobility. Patient's Goals
--- NOTE | 2019-02-28 12:21 | NUR ---
Occupational Therapy Impression Independent bed mobility in/out. Mod (I) ambulation x90ft demonstrating good tolerance for household mobility. SBA "furniture crawling" in room with no AD demonstrating good tolerance/balance for retrieving pre-made items from kitchen as she does at home. Mod (I) toileting. Independent LB dressing. Pt has met skilled OT goals. Reports no further questions/concerns for OT at this time. Plan for discharge home with services tomorrow, pt agreeable. Occupational Therapy Goals 1) Pt will be Mod (I) UB/LB dressing. 2) Pt will be Mod (I) toilet task. 3) Pt will be Independent grooming/hygiene. 4) Pt Bhaskar Index of ADLs score will improve by 2 points. 5) Pt will be SBA shower task. 6) Pt will be (I) light meal prep task. Patient's Goal
[2019-02-28] MEDS ORDERED: WARFARIN SOD 2.5 MG TAB PO SCH (13:00)
[2019-02-28] MEDS ORDERED: WARF5TAB23 PO (13:20)
[2019-02-28] MEDS ORDERED: METO25TA93 PO (13:20)
--- NOTE | 2019-02-28 13:37 | Hospitalist Depart ---
Discharge Summary Reason for Hosp/Final Diag: (1) CHF (congestive heart failure) Status: Chronic Hospital Course & Plan: She appeared to have much better volume status. She con tinued with her three times weekly dialysis. Her CXR did show improvement in her pulmonary edema pattern, but she did have some persistent (but smaller) pleural effusions. She will need to be monitored closely in the dialysis unit. She worked with PT/OT/ST throughout her stay. She showed slow progression throughout her stay. Therapy did recommend she have continued PT/OT/ST with Home Health Care upon discharge. (2) End stage renal disease Status: Chronic Hospital Course & Plan: She will continue with her 3x/week dialysis. (3) Atrial fibrillation Status: Chronic Hospital Course & Plan: She is currently on low dose metoprolol and warfarin. Her heart rate was well controlled throughout her stay. Her INR was slightly sub-therapeutic and her warfarin dose was modified. She is currently on warfarin 5mg daily except 2.5mg on TUE and TUE. She will need follow up on her Protime/INR in dialysis. (4) Hypothyroidism Status: Chronic Hospital Course & Plan: Continue replacement therapy with L-thyroxine 88mcg PO daily. She had a recent TSH (1.70 on 02/12/19). (5) Anxiety and depression Status: Chronic Hospital Course & Plan: She has been managed with trazodone, sertraline. No changes. (6) Dementia Status: Chronic Hospital Course & Plan: She appears to have some cognitive dysfunction. She appeared to be functioning at her baseline. Departure Weight (Pounds): 134 Weight (Ounces): 6.0 Item Value Date Time Prothromb Time International Ratio 1.93 02/28/19 0558 Prothrombin Time 22.3 seconds H 02/28/19 0558 Prothrombin Time 21.6 seconds H 02/27/19 0600 Prothromb Time International Ratio 1.85 02/27/19 06 Prothromb Time International Ratio 2.02 02/26/19 0551 Prothrombin Time 23.2 seconds H 02/26/19 0551 Prothrombin Time 19.1 seconds H 02/25/19 0558 Prothromb Time International Ratio 1.59 02/25/19 0558 Prothromb Time International Ratio 1.39 02/24/19 0601 Prothrombin Time 17.2 seconds H 02/24/19 0601 Sodium Level 124 mmol/L *L 02/21/19 1400 Potassium Level 5.1 mmol/L H 02/21/19 1400 Carbon Dioxide Level 26 mmol/L 02/21/19 1400 Blood Urea Nitrogen, Pre-Dialysis 40 mg/dl H 02/21/19 1400 Creatinine 7.80 mg/dl *H 02/21/19 1400 Random Glucose 120 mg/dl H 02/21/19 1400 Calcium Level 9.7 mg/dl 02/21/19 1400 Phosphorus Level 6.6 mg/dl H 02/21/19 1400 Calcium Phosphorus Product 64.0 02/21/19 1400 Total Bilirubin 0.7 mg/dl 02/21/19 1400 Alanine Aminotransferase (ALT/SGPT) 41 U/L 02/21/19 1400 Alkaline Phosphatase 216 U/L H 02/21/19 1400 Albumin 3.6 g/dl 02/21/19 1400 Parathyroid Hormone (Intact) 726 pg/ml H 02/21/19 1400 Urea Reduction Ratio 82.5 02/21/19 1810 Blood Urea Nitrogen, Post Dialysis 7 mg/dl 02/21/19 1810 White Blood Count 3.9 k/uL L 02/21/19 1400 Hemoglobin 11.4 g/dL L 02/21/19 1400 Hematocrit 35.0 % 02/21/19 1400 Platelet Count 268 K/uL 02/21/19 1400 Imaging PATIENT NAME: Roya Hernandez : 1950 MR: [id number] V: [id number] EXAM DATE: ORDERING PHYSICIAN: COREY MYLES TECHNOLOGIST: Location: [facility] [place] Patient: Roya Hernandez : 1950 Visit/Account:[id number] Date of Sevice: 02/22/2019 CHEST PA LAT INDICATION: COMPARISON: 02/12/2019 FINDINGS: Cardiac silhouette remains enlarged. There is increased pulmonary vascular congestion with borderline pulmonary edema pattern. Opacities within the right upper lobe and left lower lobe have improved. There is a loculated left pleural effusion present and a small right pleural effusion. Both effusions appear stable. Lung volumes are hyperexpanded consistent with COPD. IMPRESSION: 1. Improving pulmonary edema pattern. Cardiomegaly with pulmonary vascular congestion persists however. 2. Improved airspace opacities within the right upper and left lower lobes 3. Stable loculated left pleural effusion and trace right pleural effusion. 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 Prov:COREY MYLES MD 02/28/19 Metoprolol Tartrate (METOPROLOL TARTRATE) 25 Mg Tablet, 12.5 MG PO BID, #60 TAB One-half tab PO BID Prov:COREY MYLES MD 02/28/19 Sertraline Hcl (ZOLOFT) 25 Mg Tablet, 1 TAB PO QDAY PRN for ANXIETY, #90 TAB 1 Refill Prov:ANDREA HAQ MD 02/06/19 Losartan Potassium (LOSARTAN POTASSIUM) 50 Mg Tablet, 50 MG PO BID, #180 TAB 1 Refill Prov:ANDREA HAQ MD 01/24/19 Pantoprazole Sodium (PANTOPRAZOLE SODIUM) 40 Mg Tablet.dr, 40 MG PO QDAY, #30 TAB.SR 6 Refills Prov:ANDREA HAQ MD 12/19/18 Albuterol Sulfate 90 Mcg/Act (PROAIR HFA 90 MCG/ACT) 8.5 Gm Hfa.aer.ad, 2 PUFF IH QID PRN for SHORTNESS OF BREATH, #1 INHALER 3 Refills Prov:ANDREA HAQ MD 12/19/18 Reported Medications Ipratropium/Albuterol Sulfate (IPRAT-ALBUT 0.5-3(2.5) MG/3 ML) 3 Ml Ampul.neb, 1 UNIT IH Q6H PRN for WHEEZING 02/21/19 Vitamin B Cmplx/Vit C/Folic Ac (TRIPHROCAPS SOFTGEL) 1 Each Cap, 1 CAP PO QDAY, CAP 02/21/19 Docusate Sodium (COLACE) 100 Mg Capsule, 100 MG PO QDAY PRN for constipation, CAPSULE 1-2 tabs as needed for constipation 01/08/19 Lanthanum Carbonate (FOSRENOL) 750 Mg Tab.chew, 750 MG PO TIDCF, TAB.CHEW 12/13/18 Cholecalciferol (Vitamin D3) (VITAMIN D3) 5,000 Unit Tablet, 5000 UNIT PO QDAY 12/08/18 [place]-3/Dha/Epa/Fish Oil (Fish Oil 1,200 mg Softgel) 360 Mg-1,200 Mg Capsule.dr, 1 EA PO BID 12/08/18 Aspirin (ASPIR 81) 81 Mg Tablet.dr, 1 TAB PO QDAY, TAB 12/05/18 Atorvastatin Calcium (LIPITOR) 40 Mg Tablet, 1 TAB PO HS, TAB 12/05/18 Levothyroxine Sodium (SYNTHROID) 88 Mcg Tablet, 88 MCG PO QDAY 12/05/18 Topiramate (TOPIRAMATE) 25 Mg Tablet, 25 MG PO QDAY 12/05/18 Discontinued Reported Medications Losartan Potassium (COZAAR) 50 Mg Tablet, 50 MG PO BID 02/12/19 Ranitidine Hcl (ZANTAC) 150 Mg Tablet, 150 MG PO QHS, TAB 01/08/19 Fluticasone/Vilanterol 100/25 Mcg/Inh (BREO ELLIPTA 100/25 MCG) 1 Each Aer.pow.ba, 1 INH INH QDAY, INH 12/19/18 Vit B Complex & C No.13/Fa/D3 (NEPHROCAPS QT TABLET) Unknown Strength Tab.rapdis, PO 12/05/18 Trazodone Hcl (TRAZODONE HCL) 150 Mg Tablet, 300 MG PO QHS 12/05/18 Amlodipine Besylate (AMLODIPINE BESYLATE) 5 Mg Tablet, 10 MG PO QDAY, TAB 12/05/18 Duloxetine HCl (Duloxetine HCl) 60 Mg Capsule.dr, 30 MG PO DIRECTED take 2 tabs in the am take 1 tab in the evening 12/05/18 Follow up Referrals: Internal Medicine @ [facility] with ANDREA HAQ MD Activity: As Tolerated, No Exertion Special Instructions: Continue renal diet. Continue home oxygen at 4L via nasal cannula. Follow up with Dr. Haq in 1-2 weeks. Follow up with dialysis on Tuesday03/02/19 as planned. Follow up with Dr. Garcia at dialysis as needed. Copies to: ANDREA HAQ MD; VIJAY GARCIA MD ; Venous Thromboembolism Antithrombotics Is Pt On Any Antithrombotics?: Yes COREY MYLES MD February 28, 2019 13:37
--- NOTE | 2019-02-28 13:47 | NUR ---
OCCUPATIONAL THERAPY Dressing Assistance: Independent Dressing Aid Required: None Bathing Assistance: Modified Independent bathtub transfer with grab bar and extended tub bench Bathing Equipment: Extended tub bench Home Assessment: Not Completed Feeding Assistance: Independent Toilet Use: Modified I/ AE Verbalizes Needs: Yes Understands Precautions: Yes Cooperative: Yes Family Teaching: No Occupational Therapy Comment:
--- NOTE | 2019-02-28 14:12 | OT ECF NOTE ---
Type of Note: Discharge Note Primary Medical Diagnosis: Generalized weakness s/p recent hospital admission (see EMR) Occupational Therapy Evaluation Date: 02/20/19 SUBJECTIVE: Prior Hospitalization: [facility]) 02/12/19-02/20/19 Prior Level of Function: Independent with ADLs. Assist from family for IADLs. Pt has been living with with son/txqykhjs-zj-cks and granddaughter since November 2018. Prior, pt was living in [place] with spouse who recently in November 2018. Pt ambulates with a 4WW about 25ft to bathroom. She is alone throughout the day while family is at work. Family provides simple pre- made meals for breakfast/lunch when they are at work. Prior Living Status: Single level house Living with family Assist by family Community Services: No known needs Home Accessibility: One step into home All needs on one level Tub/shower combination Equipment Owned: Rollator Tub/shower chair Medical Complications/Past Medical History: ESRD-on dialysis M/W/F, AFib, Type II DM, COPD, Memory impairment, Anemia, Depression Psychosocial Support: Supportive family that patient resides with Pain Scale (0-10): None reported at time of evaluation OBJECTIVE: Strength: MMT: Right Left Shoulder Flexion WFL WFL Elbow Flexion WFL WFL Wrist Extension WFL WFL It Teacher WFL WFL (5= normal, 4= good, 3= fair, 2= poor, 1= trace) ROM: Both upper extremities, WFL Sensation: No paraesthesia reported Functional Transfer: Assistive Device: Rolling walker Transfer Ability: Mod (I) ADL: Upper body dressing: Assistive device: None Upper body dressing ability: Independent Lower body dressing: Assistive device: None Lower body dressing ability: Independent Toileting: Assistive device: None Toileting ability:Independent Grooming/hygiene: Assistive device: None Grooming ability: Independent Bathing: Assistive device: Grab bars, extended tub transfer bench Bathing ability: Modified Independent bathtub transfer Standardized Assessment: Bhaskar Index of Activities of Daily Livin/20 upon initial evaluation (02/20/19). upon discharge date (02/28/19). ASSESSMENT: Roya presented to [facility] with decreased endurance and balance impacting safety and independence with ADLs. She has met all skilled OT goals and presents with no further questions/concerns to address with OT prior to discharge home with family. Short Term Goals: 1) Pt will be Mod (I) UB/LB dressing. GOAL MET 2) Pt will be Mod (I) toilet task. GOAL MET 3) Pt will be Independent grooming/hygiene. GOAL MET 4) Pt Bhaskar Index of ADLs score will improve by 2 points. GOAL MET 5) Pt will be SBA shower task. GOAL MET 6) Pt will be (I) light meal prep task. GOAL MET Game Designer Goals: Return home with [facility] Patient Goals: Return home Rehabilitation Prognosis: Good Barriers to Discharge: Medical comorbidities PLAN: Skilled OT goals met. Pt plans to discharge home tomorrow with continued assist from family for IADLs and services. Pt with no further questions/concerns for OT at time of last visit. Thank you for this referral. If you have any questions, concerns, or comments about this report or plan, please contact me at . Ellen Lanier MS, OTR/L Occupational Therapist JERRY
[2019-02-28] MEDS ORDERED: PNEUMOC 13-VAL CONJ-DIP CRM/PF 0.5 ML SYR IM ONLY ONE (14:25)
--- NOTE | 2019-02-28 15:17 | NUR ---
CHRISTO completed DC MDS with pt. C: 12, D: 00, E: no concerns, Q: pt plans to DC to community, referral made for [facility] and information provided for [facility], transportation, and private care options. Will continue to follow for DC needs.
--- NOTE | 2019-02-28 15:28 | NUR ---
[id number] completed and available in LT system, categorical determination faxed to [facility], [place] [phone].
[2019-02-28 19:33] VITALS: BP 149/73
[2019-02-28] MEDS: traZODone HCL 50 MG TAB PO SCH (20:23)
[2019-03-01] MEDS: LEVOTHYROXINE SOD 0.088 MG TAB PO SCH (05:16)
[2019-03-01] MEDS: SALMETEROL/FLUTIC 100/50 1 INH INH SCH (05:22)
[2019-03-01 06:14] LABS: INR 1.85
[2019-03-01 07:30] VITALS: BP 138/56
[2019-03-01] MEDS: SERTRALINE HCL 50 MG TAB PO SCH (09:28)
[2019-03-01] MEDS: METOPROLOL TART 50 MG TAB PO SCH (09:28)
[2019-03-01] MEDS: LOSARTAN POTASSIUM 50 MG TAB PO SCH (09:28)
[2019-03-01] MEDS: TOPIRAMATE 25 MG TAB PO SCH (09:29)
[2019-03-01] MEDS: PANTOPRAZOLE SOD 40 MG TABEC PO SCH (09:29)
[2019-03-01] MEDS: LANTHANUM CARBONATE 750 MG PO SCH (09:29)
[2019-03-01] MEDS: ASPIRIN 81 MG ENTERIC COATED PO SCH (09:29)
--- NOTE | 2019-03-01 10:24 | NUR ---
Physical Therapy Impression PT goals met and pt ready for d/c from a mobility standpoint. Physical Therapy Goals 1. Pt to be indep with HEP for strengthening in supine, sitting and standing x 10 reps each 2. Pt to be modified indep with sit to/from supine and bed mobility 3. Pt to be modified indep with sit to/from stand with least restrictive device for safety 4. Pt to ambulate x 100' with proper energy conservation techniques and PLB to maintain O2 sats in safe range 5. Pt to alexis up/down platform step with least restrictive device to facilitate return to community mobility. Patient's Goals
--- NOTE | 2019-03-01 10:24 | NUR ---
PHYSICAL THERAPY INFORMATION TRANSFER SHEET BED MOBILITY: Independent TRANSFERS: Independent GAIT: 450 ' with O2 at 4 L/min RW and Modified I/ AE Weightbearing Status: no restrictions STAIRS: No stairs in home environment EXERCISES: Verbalizes Needs: Yes Understands Directions Yes Cooperative: Yes Family Teaching: Yes Physical Therapy Comment: Pt encouraged to have [facility] services to continue with proper energy conservation techniques and strengthening.
--- NOTE | 2019-03-01 12:21 | PT ECF NOTE ---
Type of Note: Initial Note Primary Medical Diagnosis: Generalized weakness s/p recent hospital admission (see EMR) Physical Therapy Evaluation Date: 02/20/19 SUBJECTIVE: Prior Hospitalization: [facility]) 02/12/19-02/20/19 Prior Level of Function: Independent with ADLs. Assist from family for IADLs. Pt has been living with with son/lmlqylbh-nz-std and granddaughter since November 2018. Prior, pt was living in [place] with spouse who recently in November 2018. Pt ambulates with a 4WW about 25ft to bathroom. She is alone throughout the day while family is at work. Family provides simple pre- made meals for breakfast/lunch when they are at work. Prior Living Status: Single level house Living with family Assist by family Community Services: No known needs Home Accessibility: One step into home All needs on one level Tub/shower combination Equipment Owned: Rollator Tub/shower chair Medical Complications/Past Medical History: ESRD-on dialysis M/W/F, AFib, Type II DM, COPD, Memory impairment, Anemia, Depression Psychosocial Support: Supportive family that patient resides with Pain Scale (0-10): None reported at time of evaluation OBJECTIVE: Strength: B) LE's 4-/5 overall; pt fatigues easily with decreased endurance ROM: (please note any abnormalities) WFL Sensation: (please note any abnormalities) no paresthesias reported Other Neuro findings: n/a Bed Mobility: CGA/Min assist Assistive device: rail Transfers: CGA/Min assist Assistive Device: FWW Gait: CGA/Min assist Assistive device: FWW and O2 Stairs: None reported in home environment. Assistive device: Timed Up and Go (>12 seconds indicated increased risk for falls): Pt unable to complete initially due to increase fatigue and decreased safety. 10 meter walk test (0.6m/second cannot function independently): nt Other Objective Measures: nt ASSESSMENT: Pt noted to be extremely fatigued with SOB upon simple conversation. Pt would benefit from PT to address proper pursed-lip breathing with activity, energy conservation techniques with O2 management during increased exertion and basic safety with ADL's. Problem List/Current Limitations: Short Term Goals: 1. Pt to be indep with HEP for strengthening in supine, sitting and standing x 10 reps each 2. Pt to be modified indep with sit to/from supine and bed mobility 3. Pt to be modified indep with sit to/from stand with least restrictive device for safety 4. Pt to ambulate x 100' with proper energy conservation techniques and PLB to maintain O2 sats in safe range 5. Pt to alexis up/down platform step with least restrictive device to facilitate return to community mobility. Custodial Goals: Pt to return home with appropriate level of assistance for safety throughout the day. Patient Goals: Return home Rehabilitation Prognosis: Good Barriers for Discharge: Pt resistant to fluid restriction which increased fluid retention and affects breathing. PLAN: The patient will benefit from skilled physical therapy services 5 times per week for 2 weeks including: Therapeutic activity, gait trng, transfer trng and use of O2 with proper energy conservation techniques. Thank you for this referral. If you have any questions, concerns, or comments about this report or plan, please contact me at . H. Gisselle Webber, PT, MPT, OMS MTDD
--- NOTE | 2019-03-01 12:28 | PT ECF NOTE ---
Type of Note: Discharge Note Primary Medical Diagnosis: Generalized weakness s/p recent hospital admission (see EMR) Physical Therapy Evaluation Date: 02/20/19 SUBJECTIVE: Prior Hospitalization: [facility]) 02/12/19-02/20/19 Prior Level of Function: Independent with ADLs. Assist from family for IADLs. Pt has been living with with son/xnuddydh-xa-phc and granddaughter since November 2018. Prior, pt was living in [place] with spouse who recently in November 2018. Pt ambulates with a 4WW about 25ft to bathroom. She is alone throughout the day while family is at work. Family provides simple pre- made meals for breakfast/lunch when they are at work. Prior Living Status: Single level house Living with family Assist by family Community Services: No known needs Home Accessibility: One step into home All needs on one level Tub/shower combination Equipment Owned: Rollator Tub/shower chair Medical Complications/Past Medical History: ESRD-on dialysis M/W/F, AFib, Type II DM, COPD, Memory impairment, Anemia, Depression Psychosocial Support: Supportive family that patient resides with Pain Scale (0-10): None reported at time of evaluation OBJECTIVE: Strength: B) LE's 4/5 overall; pt fatigues easily ROM: (please note any abnormalities) WFL Sensation: (please note any abnormalities) no paresthesias reported Other Neuro findings: n/a Bed Mobility: Indep Assistive device: rail Transfers: Indep Assistive Device: FWW Gait: Modified indep Assistive device: FWW and O2 Stairs: None reported in home environment. Assistive device: Timed Up and Go (>12 seconds indicated increased risk for falls): 28 seconds upon d/c. 10 meter walk test (0.6m/second cannot function independently): nt Other Objective Measures: nt ASSESSMENT: Pt has demonstrated improvement in tolerance of functional ADL's as well as safety with use of FWW and O2 management. Pt has met goals and is ready for d/c home. Problem List/Current Limitations: Short Term Goals: (Met) 1. Pt to be indep with HEP for strengthening in supine, sitting and standing x 10 reps each 2. Pt to be modified indep with sit to/from supine and bed mobility 3. Pt to be modified indep with sit to/from stand with least restrictive device for safety 4. Pt to ambulate x 100' with proper energy conservation techniques and PLB to maintain O2 sats in safe range 5. Pt to alexis up/down platform step with least restrictive device to facilitate return to community mobility. Dental Appliance Fixer Goals: Pt to return home with appropriate level of assistance for safety throughout the day. Patient Goals: Return home Rehabilitation Prognosis: Good Barriers for Discharge: Pt resistant to fluid restriction which increased fluid retention and affects breathing. PLAN: Pt to d/c home with assist from family and [facility] services. Pt declines to address platform step on final visit, stating that it is only a small threshold, not a step, to enter home. Thank you for this referral. If you have any questions, concerns, or comments about this report or plan, please contact me at . h. Gisselle Webber, PT, MPT, OMS MTDD
== END 2019-03-01 11:00 | disposition home health service (06) | DRG 947 ==
LOC: SWB 12:48
PROVIDERS: ADMIT Internal Medicine; ATTEND Internal Medicine
DX: R53.1 Weakness (principal); N18.6 End stage renal disease; I13.2 Hypertensive heart and chronic kidney disease with heart failure and with stage 5 chronic kidney disease, or end stage renal disease; I48.2 Chronic atrial fibrillation; Z99.2 Dependence on renal dialysis; I50.9 Heart failure, unspecified; E03.9 Hypothyroidism, unspecified; F41.8 Other specified anxiety disorders; F03.90 Unspecified dementia, unspecified severity, without behavioral disturbance, psychotic disturbance, mood disturbance, and anxiety; M1A.9XX0 Chronic gout, unspecified, without tophus (tophi); E78.5 Hyperlipidemia, unspecified; J44.9 Chronic obstructive pulmonary disease, unspecified; R74.9 Abnormal serum enzyme level, unspecified; Z79.01 Long term (current) use of anticoagulants
CPT/HCPCS: 36415; 71046; 85610; 90670; 92523; 94640; 97161; 97166

== ENCOUNTER → 2019-03-15 | Outpatient (CLI) | payer MEDICARE, OTHER ==
[~2019-03-15] MED LIST changes: +FOLI0.8T30 PO; +IPRA3AMP10 IH; +NEPH PO; -RANI-366 PO; +RANI-54 PO
--- NOTE | 2019-03-15 16:06 | RADIOLOGY IMAGING REPORT ---
FACILITY: [facility] - [place] PATIENT NAME: Roya Hernandez : 1950 MR: [id number] V: [id number] EXAM DATE: ORDERING PHYSICIAN: ANDREA COLEMAN TECHNOLOGIST: [facility] Patient: Roya Hernandez : 1950 Visit/Account:[id number] Date of Sevice: 03/15/2019 Exam type: ACUTE ABDOMEN SERIES 3 VIEW History: A. Fib, COPD, hypertension, stool incontinence Comparison: Two-view chest February 22, 2019. Findings: Again noted is marked cardiomegaly. There has been improvement of the left pleural effusion. There is mild blunting of the right costophrenic angle that appears unchanged and may be chronic. There valdivia s been slight improvement of the pulmonary vascular congestion. Peribronchial thickening bilaterally may be chronic as well. There are postsurgical changes of the lower cervical spine Supine and upright views the abdomen demonstrate a large amount of opaque particulate material throug hout the abdomen and pelvis. This may be related to ingestion of radiopaque medication/material alth ough clinical correlation needed. Remainder the bowel gas pattern is nonspecific There is a very den se round 2.4 cm in diameter object projecting over the left mid abdomen. This could be related to an ingested object within the bowel or related to an overlapping foreign body. Surgical clips identifi ed in the right upper quadrant. There are extensive vascular calcifications present. There is a dex troconvex scoliosis of the lumbar spine IMPRESSION: 1. Marked cardiomegaly although appears similar to the prior study. There has been improvement of the left pleural effusion Mild blunting the right costophrenic angle appears unchanged and may be chronic Slight improvement of pulmonary vascular congestion Peribronchial thickening bilaterally may be chronic. There is a large amount of opaque particulate material throughout the abdomen and pelvis. This may b e related to ingestion of radiopaque medication/material although clinical correlation needed A very dense 2.4 cm round object projects over the left mid abdomen. This could be related to an ing ested object within the bowel or related to an overlapping foreign body Report Dictated By: Ana Manjarrez MD at 03/15/2019 3:57 PM Report E-Signed By: Ana Manjarrez MD at 03/15/2019 4:01 PM WSN:[email or web address]
== END ==
LOC: RAD 14:53
PROVIDERS: ATTEND Internal Medicine
DX: I48.91 Unspecified atrial fibrillation (principal); J44.9 Chronic obstructive pulmonary disease, unspecified; E03.9 Hypothyroidism, unspecified; E78.5 Hyperlipidemia, unspecified; I10 Essential (primary) hypertension
CPT/HCPCS: 74022

== ENCOUNTER → 2019-03-22 | Outpatient (REF) | payer MEDICARE, OTHER | LOC: LAB 10:15 | PROVIDERS: ATTEND Internal Medicine | DX: R15.9 Full incontinence of feces (principal) | CPT/HCPCS: 82274; 83630; 87045; 87205; 87493 ==

== ENCOUNTER → 2019-03-29 | Outpatient (CLI) | payer MEDICARE, OTHER ==
--- NOTE | 2019-03-29 11:46 | RADIOLOGY IMAGING REPORT ---
[place] [facility] [place] Roya Hernandez : 1950 MR: [id number] V: [id number] EXAM DATE: ORDERING PHYSICIAN: ANDREA COLEMAN TECHNOLOGIST: [place] [facility] [place] : 1950 Visit/Account:[id number] Date of Sevice: 03/29/2019 CT ABDOMEN PELVIS W/O CON HISTORY: diarhea, stool incontinence, abnormal abdominal x ray TECHNIQUE: Axial images acquired through the abdomen/pelvis. Coronal and sagittal reformatting also performed. No IV contrast administered.Dose Lowering Technique One of the following dose optimization techniques was utilized in the performance of this exam: Autom ated exposure control; adjustment of the mA and/or kV according to the patient's size; or use of an i terative reconstruction technique. Specific details can be referenced in the facility's radiology C T exam operational policy. COMPARISON: Acute abdomen series March 15, 2019 FINDINGS: Visualized lung bases: There small bilateral posterior layering pleural effusions. Septal thickenin g in the lower lobes is present. There is a small amount of airspace consolidation in the posterior aspect lower lobes, left greater than right consistent with the atelectasis, scarring or developing i nfiltrates . Cardiomegaly Hepatobiliary: Postsurgical changes from a cholecystectomy Spleen: There are coarse calcifications along the superior subcapsular portion of the spleen possibl y related to prior trauma Adrenals: There is thickening of the left adrenal gland Pancreas: Negative. Kidneys ureters and bladder: There is cortical thinning of both kidneys. Subcentimeter cortical hypo densities in the left kidney are too small to characterize. No evidence of hydronephrosis. The blad terri is decompressed therefore not well evaluated. Genitalia: Negative. GI: There is a moderate amount of barium and fecal material throughout the colon. There is divertic ulosis of the left-sided colon although no CT evidence of acute diverticulitis . Vessels/spaces/nodes: At least moderate atherosclerotic calcified occasions are seen in the abdomina l aorta and branch vessels Bones/soft tissues: There is a dextroconvex scoliosis of the lumbar spine with spondylotic changes. There is thickening of the left gluteal muscles interspersed with hyperdense material. Along the po sterior inferior border of the gluteal musculature on the left are too ovoid hyperdensities one measu ring 4.5 x 2.1 cm and one measuring 2.6 x 1.6 cm. These may represent hematomas. There are infiltra tive changes seen in the adjacent subcutaneous fat that extends along the left-sided the buttocks and in the left paraspinal region. Correlation with possible recent trauma recommended Additional findings: None pertinent. IMPRESSION: There small bilateral posterior layering pleural effusions with adjacent airspace consolidation in th e posterior aspect the lower lobes, left greater than right consistent with atelectasis scarring or d eveloping infiltrates Septal thickening in the lower lobes likely chronic Cardiomegaly Postsurgical changes from a cholecystectomy Cortical thinning of both kidneys Moderate amount of barium and fecal material throughout colon. Diverticulosis of the left side of the colon although no CT evidence of acute diverticulitis Thickening of the left gluteal musculature interspersed with hyperdense material. Along the posterio r inferior aspect of the gluteal musculature on the left are two ovoid hyperdensities suggesting zenobia blanka. There are infiltrative changes seen adjacent subcutaneous fat extending along the left-sided the buttocks and the left paraspinal region. Correlation with possible recent trauma recommended. Additional chronic findings as described Report Dictated By: Ana Manjarrez MD at 03/29/2019 11:24 AM Report E-Signed By: Ana Manjarrez MD at 03/29/2019 11:39 AM WSN:[id number]
== END ==
LOC: CT 07:13
PROVIDERS: ATTEND Internal Medicine
DX: J90 Pleural effusion, not elsewhere classified (principal); I51.7 Cardiomegaly; K57.30 Diverticulosis of large intestine without perforation or abscess without bleeding; Z90.49 Acquired absence of other specified parts of digestive tract
CPT/HCPCS: 74176

== ENCOUNTER → 2019-04-27 | Outpatient (REF) | payer MEDICARE, OTHER ==
[2019-04-27 15:14] LABS: INR 1.74
== END ==
LOC: LAB 14:28
PROVIDERS: ATTEND Internal Medicine
DX: Z51.81 Encounter for therapeutic drug level monitoring (principal); Z79.01 Long term (current) use of anticoagulants
CPT/HCPCS: 36415; 85610

== ENCOUNTER → 2019-05-09 | Outpatient (REF) | payer MEDICARE, OTHER ==
[2019-05-09 15:10] LABS: INR 1.99
== END ==
LOC: ZZSENDIN 14:37
PROVIDERS: ATTEND Internal Medicine Cardiovascular Disease
DX: Z51.81 Encounter for therapeutic drug level monitoring (principal); I48.91 Unspecified atrial fibrillation; Z79.01 Long term (current) use of anticoagulants
CPT/HCPCS: 85610

== ENCOUNTER → 2019-05-23 | Outpatient (REF) | payer MEDICARE, OTHER ==
[~2019-05-23] MED LIST changes: +LANT10002 PO
[2019-05-23 15:33] LABS: INR 2.69
== END ==
LOC: ZZSENDIN 14:31
PROVIDERS: ATTEND Internal Medicine Cardiovascular Disease
DX: Z51.81 Encounter for therapeutic drug level monitoring (principal); I48.91 Unspecified atrial fibrillation; Z79.01 Long term (current) use of anticoagulants
CPT/HCPCS: 85610